=== PATIENT | male | born 1980 | race Caucasian/White ===

== ENCOUNTER → 2021-09-02 | Outpatient (CLI) | payer BC ==
--- NOTE | 2021-09-02 10:21 | US ---
EXAMINATION TYPE: US abdomen limited DATE OF EXAM: 09/02/2021 COMPARISON: NONE CLINICAL HISTORY: R94.5 ABN LIVER FUNCTION TEST. Patient states not seeing a doctor in over 20 years; recently had a physical and this test was ordered. Patient is extremely jaundiced. EXAM MEASUREMENTS: Liver Length: 20.5 cm Gallbladder Wall: 0.6 cm CBD: 0.6 cm Right Kidney: 12.0 x 5.5 x 5.0 cm Pancreas: Tail obscured by overlying bowel gas Liver: Hepatomegaly; ascites seen Gallbladder: Diffusely irregular wall thickening with mass-like projections and pericholecystic flui d. Evidence for sonographic Machuca's sign: No CBD: Appears wnl Right Kidney: No hydronephrosis or masses seen Visualized portion of pancreas shows no worrisome mass or ductal dilatation. Visualized liver is hete rogeneously hyperechoic with surrounding ascites. Evaluation for focal masses suboptimal due to the h eterogeneity. No obvious concerning solid or cystic mass seen on images saved. No intrahepatic or ext rahepatic biliary dilatation is seen. Gallbladder shows no mobile shadowing intraluminal gallstones. Gallbladder wall is thickened up to 6 mm. Sonographic Machuca sign is negative. No right-sided hydrone phrosis. IMPRESSION: Heterogeneous hyperechoic appearance of liver with surrounding ascites is suggestive of u nderlying hepatocellular disease or cirrhosis. No biliary dilatation noted
== END | disposition home or self-care (01) ==
LOC: RADUSWWP 09:34
PROVIDERS: ATTEND Family Medicine
DX: R94.5 Abnormal results of liver function studies (principal)
CPT/HCPCS: 76705

== ENCOUNTER 2021-10-06 16:24 | Inpatient (IN) | payer BC ==
[2021-10-06] MEDS ORDERED: SODIUM CHLORIDE 0.9% 500 ML 500 ML IV STA (16:47)
--- NOTE | 2021-10-06 17:01 | ED ---
General Adult HPI - General Chief complaint: Weakness Stated complaint: Weakness, abn labs Time Seen by Provider: 10/06/21 16:40 Source: patient, family, RN notes reviewed, old records reviewed Mode of arrival: ambulatory Limitations: no limitations - History of Present Illness Initial comments: 41-year-old male presents to the emergency room with generalized weakness, decreased appetite and abdominal distention. Patient is severely jaundiced. He states that he has been seening his doctor since June and they've been monitoring his liver enzymes. He had an ultrasound done in August of this year. He denies any pain or difficulty in breathing. He does state that his legs have been swollen. He denies any confusion. He denies any pain. Family at bedside states that she made him come to the hospital and he seems confused today. He was prescribed lactulose and has not been taking it. Family states that he has not been a heavy drinker in the past. She states that he would drink a Truly daily after work and he is currently not drinking. She states his doctor is not sure of the cause of his jaundice. -: month(s) Severity scale (1-10): 0 Associated Symptoms: loss of appetite, malaise, weakness - Related Data Home Medications Medication Instructions Recorded Confirmed Lactulose 15 gm PO BID 10/06/21 10/06/21 Multivitamins, Thera [Multivitamin 1 tab PO DAILY 10/06/21 10/06/21 (formulary)] Potassium Chloride ER [K-Dur 20] 20 meq PO DAILY 10/06/21 10/06/21 Sertraline [Zoloft] 50 mg PO HS 10/06/21 10/06/21 Spironolactone 50 mg PO BID 10/06/21 10/06/21 Allergies Allergy/AdvReac Type Severity Reaction Status Date / Time No Known Allergies Allergy Verified 10/06/21 17:25 Review of Systems ROS Statement: Those systems with pertinent positive or pertinent negative responses have been documented in the HPI. ROS Other: All systems not noted in ROS Statement are negative. Past Medical History Past Medical History: Liver Disease Past Surgical History: No Surgical Hx Reported Past Psychological History: Depression Smoking Status: Never smoker Past Alcohol Use History: None Reported Past Drug Use History: None Reported General Exam Limitations: no limitations General appearance: alert, in no apparent distress Eye exam: Present: scleral icterus. Absent: periorbital swelling, periorbital tenderness ENT exam: Present: mucous membranes moist Respiratory exam: Present: normal lung sounds bilaterally. Absent: respiratory distress, wheezes, rales, rhonchi, stridor, chest wall tenderness, accessory muscle use, decreased breath sounds Cardiovascular Exam: Present: regular rate GI/Abdominal exam: Present: distended. Absent: tenderness Extremities exam: Present: pedal edema (Bilateral 1+). Absent: tenderness, calf tenderness Back exam: Present: normal inspection. Absent: tenderness, CVA tenderness (R), CVA tenderness (L), rash noted Neurological exam: Present: alert, oriented X3, normal gait Expanded Patient oriented to: Present: person, place, time Speech: Present: fluid speech Cranial nerves: EOM's Intact: Normal, Gag Reflex: Normal, Tongue Deviation: Normal Motor strength exam: RUE: 4, LUE: 4, RLE: 4, LLE: 4 Eye Response: (4) open spontaneously Motor Response: (6) obeys commands Verbal Response: (5) oriented Marion Total: 15 Psychiatric exam: Present: flat affect Skin exam: Present: warm, dry, other (jaundiced). Absent: normal color, cyanosis, diaphoretic Course Vital Signs 10/06/21 10/06/21 10/06/21 16:26 16:33 19:11 Temperature 98.2 F Pulse Rate 79 89 Respiratory 16 16 Rate Blood Pressure 118/67 127/74 O2 Sat by Pulse 98 98 Oximetry EKG Findings - EKG Results: EKG: sinus rhythm (Ventricular at 85, SD interval 0.135, QRS 0.107, QTC 0.431) Medical Decision Making - Medical Decision Making 41-year-old male presents with generalized weakness, jaundice, confusion and abdominal distention. He has been seening his doctor since June and they've been monitoring his liver enzymes. He had an ultrasound done in August of this year. He was prescribed lactulose and has not been taking it. Patient has several electrolyte abnormalities including hyperkalemia, hyponatremia, and elevated liver enzymes. Lactic acid is elevated and patient was given IVF bolus, in addition to normal saline at 130cc/hr. Ammonia is 79 patient was given lactulose. CT brain shows no acute intracranial abnormality. A fluid density in the right side probably virchow-chelsey space. No evidence of intracranial hemorrhage. Vital signs are stable. Case discussed with Dr. Florence. patient will be admitted to the [facility] with nephrology on consult for FLORESITA; GI for hyperbilirubinemia and ascites; and neurology for altered mentation likely hepatic encephalopathy. Patient and family are agreeable to this plan of care. - Lab Data Result diagrams: 10/06/21 16:52 10/06/21 16:52 Lab Results 10/06/21 10/06/21 10/06/21 Range/Units 16:52 16:52 16:52 WBC 11.7 H (3.8-10.6) k/uL RBC 3.27 L (4.30-5.90) m/uL Hgb 13.0 (13.0-17.5) gm/dL Hct 38.1 L (39.0-53.0) % MCV 116.5 H (80.0-100.0) fL MCH 39.8 H (25.0-35.0) pg MCHC 34.2 (31.0-37.0) g/dL RDW 15.1 (11.5-15.5) % Plt Count 157 (150-450) k/uL MPV 8.8 Neutrophils % 80 % Lymphocytes % 9 % Monocytes % 8 % Eosinophils % 1 % Basophils % 0 % Neutrophils # 9.3 H (1.3-7.7) k/uL Lymphocytes # 1.1 (1.0-4.8) k/uL Monocytes # 0.9 (0-1.0) k/uL Eosinophils # 0.1 (0-0.7) k/uL Basophils # 0.0 (0-0.2) k/uL Manual Slide Review Performed Poikilocytosis (manual Present Macrocytosis Marked A PT 39.7 H (9.0-12.0) sec INR 4.0 H (<1.2) APTT 50.2 H (22.0-30.0) sec Sodium 127 L (137-145) mmol/L Potassium 5.4 H (3.5-5.1) mmol/L Chloride 97 L (98-107) mmol/L Carbon Dioxide 13 L (22-30) mmol/L Anion Gap 17 mmol/L BUN 71 H (9-20) mg/dL Creatinine 2.73 H (0.66-1.25) mg/dL Est GFR (CKD-EPI)AfAm 32 (>60 ml/min/1.73 sqM) Est GFR (CKD-EPI)NonAf 27 (>60 ml/min/1.73 sqM) Glucose 136 H (74-99) mg/dL Lactic Ac Sepsis Rflx Plasma Lactic Acid Clayton (0.7-2.0) mmol/L Calcium 8.6 (8.4-10.2) mg/dL Phosphorus 7.1 H (2.5-4.5) mg/dL Magnesium 2.4 H (1.6-2.3) mg/dL Total Bilirubin 26.2 H* (0.2-1.3) mg/dL AST 108 H (17-59) U/L ALT 95 H (4-49) U/L Alkaline Phosphatase 135 H (38-126) U/L Ammonia (<30) umol/L Troponin I (0.000-0.034) ng/mL Total Protein 8.2 (6.3-8.2) g/dL Albumin 3.0 L (3.5-5.0) g/dL Amylase 109 (30-110) U/L Lipase 557 H (23-300) U/L 10/06/21 10/06/21 10/06/21 Range/Units 16:52 16:52 17:45 WBC (3.8-10.6) k/uL RBC (4.30-5.90) m/uL Hgb (13.0-17.5) gm/dL Hct (39.0-53.0) % MCV (80.0-100.0) fL MCH (25.0-35.0) pg MCHC (31.0-37.0) g/dL RDW (11.5-15.5) % Plt Count (150-450) k/uL MPV Neutrophils % % Lymphocytes % % Monocytes % % Eosinophils % % Basophils % % Neutrophils # (1.3-7.7) k/uL Lymphocytes # (1.0-4.8) k/uL Monocytes # (0-1.0) k/uL Eosinophils # (0-0.7) k/uL Basophils # (0-0.2) k/uL Manual Slide Review Poikilocytosis (manual Macrocytosis PT (9.0-12.0) sec INR (<1.2) APTT (22.0-30.0) sec Sodium (137-145) mmol/L Potassium (3.5-5.1) mmol/L Chloride (98-107) mmol/L Carbon Dioxide (22-30) mmol/L Anion Gap mmol/L BUN (9-20) mg/dL Creatinine (0.66-1.25) mg/dL Est GFR (CKD-EPI)AfAm (>60 ml/min/1.73 sqM) Est GFR (CKD-EPI)NonAf (>60 ml/min/1.73 sqM) Glucose (74-99) mg/dL Lactic Ac Sepsis Rflx Y Plasma Lactic Acid Clyaton 3.9 H* (0.7-2.0) mmol/L Calcium (8.4-10.2) mg/dL Phosphorus (2.5-4.5) mg/dL Magnesium (1.6-2.3) mg/dL Total Bilirubin (0.2-1.3) mg/dL AST (17-59) U/L ALT (4-49) U/L Alkaline Phosphatase (38-126) U/L Ammonia 79 H (<30) umol/L Troponin I <0.012 (0.000-0.034) ng/mL Total Protein (6.3-8.2) g/dL Albumin (3.5-5.0) g/dL Amylase (30-110) U/L Lipase (23-300) U/L Disposition Clinical Impression: Hyponatremia, FLORESITA (acute kidney injury), Ascites, Hyperkalemia, Hyperammonemia, Altered mental status, Lactic acidosis Clinical Impression: (Ruled Out): Encephalopathy due to ammonia Disposition: ADMITTED IP TO THIS HOSP Decision Date: 10/06/21 Decision Time: 18:35
[2021-10-06 17:30] LABS: Basophils % (A) 0 %; Eosinophils # (A) 0.1 k/uL (0-0.7); Eosinophils % (A) 1 %; HCT 38.1 % (39.0-53.0); Lymphocytes # (A) 1.1 k/uL (1.0-4.8); Lymphocytes % (A) 9 %; MCH 39.8 pg (25.0-35.0); MCHC 34.2 g/dL (31.0-37.0); MCV 116.5 fL (80.0-100.0); Macrocytosis Marked; Mean Platelet Volume 8.8; Monocytes # (A) 0.9 k/uL (0-1.0); Monocytes % (A) 8 %; Neutrophils # (A) 9.3 k/uL (1.3-7.7); Neutrophils % (A) 80 %; Platelet Count 157 k/uL (150-450); RBC 3.27 m/uL (4.30-5.90); RDW 15.1 % (11.5-15.5); WBC 11.7 k/uL (3.8-10.6)
[2021-10-06 17:41] LABS: Partial Thromboplastin Time 50.2 sec (22.0-30.0); Prothrombin Time 39.7 sec (9.0-12.0)
[2021-10-06 17:45] LABS: Lactic Acid, Venous 3.9 mmol/L (0.7-2.0)
[2021-10-06] MEDS ORDERED: SODIUM CHLORIDE 0.9% 500 ML 500 ML IV ONE (17:47)
--- NOTE | 2021-10-06 18:04 | CT ---
EXAMINATION TYPE: CT brain wo con DATE OF EXAM: 10/06/2021 COMPARISON: None HISTORY: altered mental - jaundiced CT DLP: 1052.4 mGycm Automated exposure control for dose reduction was used. Ventricles have fairly normal size. There is no mass effect or midline shift. There is no sign of int racranial hemorrhage. There is irregular shaped area of fluid density in the insula right temporal lo be that could be a large Virchow-Mehdi space. This measures 2 x 1.3 cm. The calvarium is intact. Ther e is normal aeration of the mastoid sinuses. IMPRESSION: No acute intracranial abnormality. Fluid density in the right side is probably virchowRobin space.
[2021-10-06] MEDS ORDERED: LACTULOSE 20 GM/30 ML CUP PO ONE (18:06)
[2021-10-06 18:07] LABS: Calcium 8.6 mg/dL (8.4-10.2); Magnesium 2.4 mg/dL (1.6-2.3); Phosphorus 7.1 mg/dL (2.5-4.5); Potassium 5.4 mmol/L (3.5-5.1)
[2021-10-06 18:12] LABS: Poikilocytosis (M) Present
[2021-10-06 18:16] LABS: Total Bilirubin 26.2 mg/dL (0.2-1.3); Total Protein 8.2 g/dL (6.3-8.2)
--- NOTE | 2021-10-06 18:16 | XR ---
EXAMINATION TYPE: XR chest 2V DATE OF EXAM: 10/06/2021 COMPARISON: NONE HISTORY: Weakness TECHNIQUE: 3 views FINDINGS: Heart is normal. There is some elevation of the right diaphragm. There is some linear densi ty at the lung bases bilaterally. There are no hilar masses. There are chest leads. IMPRESSION: Bilateral basilar atelectasis with some elevation of the right diaphragm. Normal heart.
[2021-10-06] MEDS: SODIUM CHLORIDE 0.9% 1,000 ML IV SCH (18:20)
[2021-10-06] MEDS ORDERED: NALOXONE 0.4 MG/ML 1 ML VIAL IV PRN (18:35)
[2021-10-06] MEDS: ONDANSETRON 4 MG/2 ML VIAL IVP PRN (18:46)
--- NOTE | 2021-10-06 18:48 | US ---
EXAMINATION TYPE: US abdomen limited DATE OF EXAM: 10/06/2021 COMPARISON: US 09/02/21 CLINICAL HISTORY: ascites. EC patient with jaundice, distended abdomen, lethargy, abnormal labs. Ascites is imaged in all four abdominal quadrants with largest ascites pocket seen RLQ = 12.3cm A/P/ Incidental follow up on gallbladder: hyperechoic sludge is seen in neck and mid gallbladder in semie rect position. Gallbladder wall is wnl.Common Hepatic Duct measures 0.3cm and is wnl. Main Portal Vei n is enlarged = 1.7cm. IMPRESSION: There is large amount of abdominal ascites demonstrated. There is echogenic bile in the g allbladder. There is a large portal vein consistent with some portal venous hypertension. No thrombos is seen.
[2021-10-06] MEDS ORDERED: LACTULOSE 200 GM/300 ML (FROM 1/2 GAL JUG) PO SCH (21:00)
[2021-10-06] MEDS ORDERED: SPIRONOLACTONE 25 MG TAB PO SCH (21:00)
[2021-10-06] MEDS: SERTRALINE 50 MG TAB PO SCH (23:13)
[2021-10-06] MEDS ORDERED: LACTULOSE 20 GM/30 ML CUP PO SCH (23:14)
[2021-10-06] MEDS: LACTULOSE 20 GM/30 ML CUP PO SCH (23:38)
--- NOTE | 2021-10-07 02:09 | P.EN ---
A- team: Indication: Hypothermia Arrived on Scene to find: Severely jaundiced patient, complaining of not feeling well Vital signs reviewed: Temperature 94.7 degrees axillary, BP 112/69, pulse 86, SpO2 99% on room air Patient seen and examined at bedside. Chart reviewed and case discussed with RN in detail. General: Severely jaundiced ill-appearing male, [appears at stated age] Derm: [warm], [dry] Head: [atraumatic], [normocephalic], [symmetric] Eyes: [EOMI], [no lid lag], scleral icterus noted Mouth: [no lip lesion], [mucus membranes moist] Cardiovascular: [S1S2 reg], [no murmur], [positive posterior tibial pulse bilateral], Lungs: [CTA bilateral], [no rhonchi, no rales] , [no accessory muscle use] Abdominal: Distended with fluid thrill noted, [no guarding] Ext: [no gross muscle atrophy], 1+ bilateral lower extremity pitting edema, [no contractures] Neuro: [ CN II-XI grossly intact], [no focal neuro deficits] Psych: Lethargic, answering questions appropriately however and oriented to person, place, time Assessment: Fulminant liver failure, unknown etiology Hepatic encephalopathy Plan: Discussed the case in detail with the patient's and [id number] at the bedside. Explained to the family regarding the patient's poor prognosis with MELD score showing 73% 3 month mortality. Ceftriaxone for SBP prophylaxis ordered GI consult in system Warming blankets ordered Family reports no clear diagnosis regarding the etiology of liver failure. reports the patient consumed 1 drink/day for the past several years Notified: Primary team notified by RN A Total of 45 minutes of critical care time was spent on the complex care of this patient.
[2021-10-07] MEDS: SODIUM CHLORIDE 0.9% 1,000 ML IV SCH (03:00)
[2021-10-07 07:36] LABS: ALT 97 U/L (4-49); AST 102 U/L (17-59); African American GFR (CKD) 36 (>60 ml/min/1.73 sqM); Albumin 2.6 g/dL (3.5-5.0); Albumin/Globulin Ratio 0.5; Alkaline Phosphatase 122 U/L (38-126); Anion Gap 8 mmol/L; Blood Urea Nitrogen 75 mg/dL (9-20); Calcium 8.2 mg/dL (8.4-10.2); Carbon Dioxide 16 mmol/L (22-30); Chloride 105 mmol/L (98-107); Globulin 4.9 g/dL; Glucose 121 mg/dL (74-99); Magnesium 2.4 mg/dL (1.6-2.3); Non-African American GFR(CKD) 31 (>60 ml/min/1.73 sqM); Potassium 5.1 mmol/L (3.5-5.1); Sodium 129 mmol/L (137-145); Total Protein 7.5 g/dL (6.3-8.2)
[2021-10-07 07:41] LABS: Total Bilirubin 21.8 mg/dL (0.2-1.3)
--- NOTE | 2021-10-07 08:01 | US ---
EXAMINATION TYPE: US kidneys/renal and bladder DATE OF EXAM: 10/07/2021 COMPARISON: NONE CLINICAL HISTORY: elva. EXAM MEASUREMENTS: Right Kidney: 13.3 x 5.4 x 6.7 cm Left Kidney: 14.9 x 5.3 x 5.3 cm Right Kidney: No hydronephrosis or masses seen Left Kidney: No hydronephrosis or masses seen Bladder: Sonolucent. Posterior wall is normal. Incidental note is made of ascites throughout abdomen and pelvis. IMPRESSION: 1. Ascites. 2. Bilateral kidneys as visualized appear unremarkable.
[2021-10-07] MEDS: ONDANSETRON 4 MG/2 ML VIAL IVP PRN (08:28)
[2021-10-07] MEDS: LACTULOSE 20 GM/30 ML CUP PO SCH ×2 (08:28→22:47)
[2021-10-07] MEDS: MULTIVITAMINS, THERA 1 EACH TAB PO SCH (08:29)
[2021-10-07] MEDS ORDERED: LACTULOSE 20 GM/30 ML CUP PO SCH (09:00)
--- NOTE | 2021-10-07 09:21 | P.NPCON ---
History of Present Illness - Reason for Consult acute renal failure - History of Present Illness Reason for consultation: Acute kidney injury History of present illness: Patient is a 41-year-old male seen in renal consultation for acute kidney injury. Patient's baseline creatinine is near 1 and was elevated at 2.73 on admission. It is 2.46 today. Patient presented to the hospital with altered mental status. According to the he's been more confused over the last week or so and subsequently brought him to the hospital. Patient was noted to have elevated liver enzymes and was being worked up outpatient. He had an ultrasound done and was also started on spironolactone 50 mg twice daily about 2 weeks ago. However his abdomen has been getting progressively more distended. Ultrasound of the abdomen showed large amount of ascites. He's currently receiving IV fluids. Blood pressure is stable. Potassium was 5.4 on admission and is 5.1 today. Sodium level is 129. No use of nonsteroidals. According to the he drinks about 1 alcoholic beverage a day or so. No history of diabetes. Vital signs are stable. General: Resting in bed. Jaundice noted. HEENT: Head exam is unremarkable. LUNGS: Breath sounds decreased. HEART: Rate and Rhythm are regular. ABDOMEN: Soft, distention noted. EXTREMITITES: 1+ edema. Past Medical History Past Medical History: Liver Disease History of Any Multi-Drug Resistant Organisms: None Reported Past Surgical History: No Surgical Hx Reported Past Psychological History: Depression Smoking Status: Never smoker Past Alcohol Use History: None Reported Past Drug Use History: None Reported Medications and Allergies Home Medications Medication Instructions Recorded Confirmed Type Lactulose 15 gm PO BID 10/06/21 10/06/21 History Multivitamins, Thera [Multivitamin 1 tab PO DAILY 10/06/21 10/06/21 History (formulary)] Potassium Chloride ER [K-Dur 20] 20 meq PO DAILY 10/06/21 10/06/21 History Sertraline [Zoloft] 50 mg PO HS 10/06/21 10/06/21 History Spironolactone 50 mg PO BID 10/06/21 10/06/21 History Allergies Allergy/AdvReac Type Severity Reaction Status Date / Time No Known Allergies Allergy Verified 10/06/21 17:25 Physical Exam Vitals: Vital Signs Temp Pulse Pulse Resp BP BP Pulse Ox 10/07/21 08:00 97.4 F L 94 18 109/63 98 10/07/21 02:07 96.1 F L 86 15 120/71 97 10/06/21 21:33 94.7 F L 86 16 112/69 99 10/06/21 20:00 86 10/06/21 19:11 89 16 127/74 98 10/06/21 16:33 118/67 10/06/21 16:26 98.2 F 79 16 98 Intake and Output 10/06/21 10/07/21 10/07/21 22:59 06:59 14:59 Intake Total 830 Balance 830 Intake: Intake, IV Titration 830 Amount Sodium Chloride 0.9% 1, 780 000 ml @ 130 mls/hr IV . [id number] [facility] Rx#:[id number] cefTRIAXone 2 gm In 50 Sodium Chloride 0.9% 50 ml @ 100 mls/hr IVPB ONCE STA Rx#:[id number] Other: # Bowel Movements 3 Weight 81.647 kg Results - Lab Results Most recent lab results Calcium 8.2 mg/dL (8.4-10.2) L 10/07/21 05:41 Phosphorus 7.1 mg/dL (2.5-4.5) H 10/06/21 16:52 Magnesium 2.4 mg/dL (1.6-2.3) H 10/07/21 05:41 10/06/21 16:52 10/07/21 05:41 Assessment and Plan Plan: Assessment: 1. Acute kidney injury secondary to ATN. Concern for hepatorenal syndrome. Creatinine 2.73 on admission and is 2.46 today. Baseline creatinine near 1. No hydronephrosis noted on kidney ultrasound. 2. Acute liver failure. Likely alcohol induced. 3. Hyperkalemia secondary to acute kidney injury, metabolic acidosis, spironolactone and potassium supplementation. Better. 4. Ascites. 5. Hypovolemic hyponatremia initially improved with IV hydration. Now hypervolemic with ascites. 6. Metabolic acidosis secondary to acute kidney injury and lactic acidosis. Plan: Hep-Lock IV fluids. 1200 mL fluid restriction. Add Lasix 40 mg IV daily. Hold spironolactone due to hyperkalemia today. Add oral sodium bicarb. Will need paracentesis. I will give him IV albumin pre-and post procedure. Continue to monitor renal function and urine output. GI consulted. Straight cath to rule out urinary retention. Discussed with the nurse. Check UA. Thank you for the consultation. I will continue to follow the patient with you during his hospital stay.
[2021-10-07 09:55] LABS: Amorphous Sediment,Urine Occasional /hpf; Appearance,Urine Cloudy (Clear); Bilirubin,Urine 3+ (Negative); Blood,Urine Negative (Negative); Color,Urine Dark Brown; Glucose,Urine (UA) Negative (Negative); Ketones,Urine Negative (Negative); Leukocyte Esterase,Urine Negative (Negative); Mucus,Urine Rare /hpf; Nitrite,Urine Negative (Negative); Protein,Urine Negative (Negative); RBC,Urine 1 /hpf (0-5); Specific Gravity,Urine 1.015 (1.001-1.035); Squamous Epithelial Cell,Urine 1 /hpf (0-4); WBC,Urine 2 /hpf (0-5)
--- NOTE | 2021-10-07 10:49 | P.CNNES ---
History of Present Illness Consult date: 10/07/21 Requesting physician: Nolan Coleman Reason for Consult: Altered mental status, hyperammonemia History of Present Illness: This is a 41-year-old gentleman who presented emergency department on 10/06/2021 for generalized weakness, decreased appetite and abdominal distention. Neurology is consulted for altered mental status, hyperammonemia. Some of the history is obtained from patient's (who is at bedside). Patient presented severely jaundice and the per the patient's he drinks 1-2 cans of beer a day and they're usually 12 ounces and he said he stopped couple months ago. He denies severe alcohol use. Per the patient he's been having significant weight loss for some time but I could not get up and walk frame of time and how much. Denies any diagnosis of cancer. He feels his entire body is weak, fatigue. There is no focal weakness. Patient is not on acetaminophen. Patient has history of depression, GERD and patient is on diuretic, potassium and Zoloft. Patient Eze off from his mother's side had a history of colon cancer but he's not sure at what age. Patient denies of tobacco use or any illicit drug use. Some of the workup in the hospital consisted of: CT of the head is reported as no acute intracranial abnormality. The fluid density in the right sided probable Virchow Mehdi space. I personally reviewed the CT of the head there is no acute subacute ischemia, there is no intracranial hemorrhage, there is no mass effect. I did see the hypodensity over the right side as mostly over the right basal ganglia/medial temporal region. I discussed this with Dr. Danielle (reading radiologist) today and he felt it was benign and he did not feel it was Virchow Mehdi space and he felt it was more cystic. AST 108, ALT 95. Total bilirubin is 26.2, ammonia level LXXIX. Lipase is 557. Also on phosphatase is 135. Creatinine is 2.73, BUN 71, sodium is 127, potassium is 5.4, calcium is 8.6, phosphorus is 7.1, magnesium 2.4 INR is 4.0, PTT is 50.2, PTT is 39.7. Abdominal ultrasound is reported as large amount of abdominal ascites. There is echogenic bile in the gallbladder. There is a large portal vein consistent with some portal venous hypertension. No thrombosis seen. Bilateral kidneys as visualized appear unremarkable. Review of Systems Review of system: The 12 point system was reviewed and apparent positive and negative per HPI. Past Medical History Past Medical History: Liver Disease History of Any Multi-Drug Resistant Organisms: None Reported Past Surgical History: No Surgical Hx Reported Past Psychological History: Depression Smoking Status: Never smoker Past Alcohol Use History: None Reported Past Drug Use History: None Reported - Past Family History Mother Additional Family Medical History / Comment(s): gallbladder removed, bile duct closed, jaundice Medications and Allergies Home Medications Medication Instructions Recorded Confirmed Type Lactulose 15 gm PO BID 10/06/21 10/06/21 History Multivitamins, Thera [Multivitamin 1 tab PO DAILY 10/06/21 10/06/21 History (formulary)] Potassium Chloride ER [K-Dur 20] 20 meq PO DAILY 10/06/21 10/06/21 History Sertraline [Zoloft] 50 mg PO HS 10/06/21 10/06/21 History Spironolactone 50 mg PO BID 10/06/21 10/06/21 History Allergies Allergy/AdvReac Type Severity Reaction Status Date / Time No Known Allergies Allergy Verified 10/06/21 17:25 Physical Examination - Vital Signs Vital Signs: Vital Signs Temp Pulse Pulse Resp BP BP Pulse Ox 10/07/21 08:00 97.4 F L 94 18 109/63 98 10/07/21 02:07 96.1 F L 86 15 120/71 97 10/06/21 21:33 94.7 F L 86 16 112/69 99 10/06/21 20:00 86 10/06/21 19:11 89 16 127/74 98 10/06/21 16:33 118/67 10/06/21 16:26 98.2 F 79 16 98 Intake and Output 10/06/21 10/07/21 10/07/21 22:59 06:59 14:59 Intake Total 830 Balance 830 Intake: Intake, IV Titration 830 Amount Sodium Chloride 0.9% 1, 780 000 ml @ 130 mls/hr IV . [id number] [facility] Rx#:[id number] cefTRIAXone 2 gm In 50 Sodium Chloride 0.9% 50 ml @ 100 mls/hr IVPB ONCE STA Rx#:[id number] Other: # Bowel Movements 3 Weight 81.647 kg GENERAL: The patient is lying in bed and appears severely jaundice and fatigue throughout. . CHEST: The heart rate is regular rate rhythm. No murmurs to auscultation. LUNG: Clear to auscultation bilaterally no wheezing noted throughout. Not labored breathing. ABDOMEN/GI: Bowel sounds present in all 4 quadrants. Has ascites. INTEGUMENTARY: Severely jaundice throughout body. NEUROLOGICAL: Higher mental function: The patient is drowsy but is awakeable to voice, oriented to self, place and time. Patient is following commands. No aphasia and no neglect. Cranial nerves: The pupils are round, equal and reactive to light. Patient has scleral icterus. Visual [place]lejo are full to confrontation throughout. Extraocular movement is intact no nystagmus is noted. Facial sensation is normal to touch throughout. The facial strength is normal throughout. Hearing is normal bilaterally to hand rub. Tongue is midline and moved [id number] without any difficulty. No dysarthria is noted. Shoulder shrug is normal bilaterally. Motor: The strength is lfting all extremities above gravity. Could not assess i ndividual muscles because of cooperation. Normal tone and bulk. Cerebellum: Normal finger to nose bilaterally. Has Asterixis on extension of both hands out. Sensation: Sensation is normal to touch throughout. Reflexes (right/left): 2+ throughout. Plantars are mute bilaterally. Results - Laboratory Findings CBC and BMP: 10/06/21 16:52 10/07/21 05:41 Abnormal Lab Findings: Abnormal Labs 10/06/21 10/06/21 10/06/21 16:52 16:52 16:52 WBC 11.7 H RBC 3.27 L Hct 38.1 L MCV 116.5 H MCH 39.8 H Neutrophils # 9.3 H Macrocytosis Marked A PT 39.7 H INR 4.0 H APTT 50.2 H Sodium 127 L Potassium 5.4 H Chloride 97 L Carbon Dioxide 13 L BUN 71 H Creatinine 2.73 H Glucose 136 H Plasma Lactic Acid Clayton Calcium Phosphorus 7.1 H Magnesium 2.4 H Total Bilirubin 26.2 H* AST 108 H ALT 95 H Alkaline Phosphatase 135 H Ammonia Albumin 3.0 L Lipase 557 H Urine Bilirubin Amorphous Sediment Urine Mucus 10/06/21 10/06/21 10/07/21 16:52 20:32 05:41 WBC RBC Hct MCV MCH Neutrophils # Macrocytosis PT INR APTT Sodium 129 L Potassium Chloride Carbon Dioxide 16 L BUN 75 H Creatinine 2.46 H Glucose 121 H Plasma Lactic Acid Clayton 3.9 H* 3.8 H* Calcium 8.2 L Phosphorus Magnesium 2.4 H Total Bilirubin 21.8 H* AST 102 H ALT 97 H Alkaline Phosphatase Ammonia 79 H Albumin 2.6 L Lipase Urine Bilirubin Amorphous Sediment Urine Mucus 10/07/21 09:22 WBC RBC Hct MCV MCH Neutrophils # Macrocytosis PT INR APTT Sodium Potassium Chloride Carbon Dioxide BUN Creatinine Glucose Plasma Lactic Acid Clayton Calcium Phosphorus Magnesium Total Bilirubin AST ALT Alkaline Phosphatase Ammonia Albumin Lipase Urine Bilirubin 3+ H Amorphous Sediment Occasional H Urine Mucus Rare H Assessment and Plan Assessment: Hepatic encephalopathy Hyperammonemia due to liver failure Electrolyte abnormality due to acute liver failure Acute liver failure rule out cancer vs ?possible alcohol induced. Ascites due to acute liver failure Acute kidney injury History of alcohol use and drinks one to 2 cans of beer daily (12 oz) and stopped couple months back. Plan: -Patient is on lactulose and we'll defer the management to the primary as well as the GI team. -CT of the head is reported as no acute intracranial abnormality. The fluid density in the right sided probable Virchow Mehdi space. I personally reviewed the CT of the head there is no acute subacute ischemia, there is no intracranial hemorrhage, there is no mass effect. I did see the hypodensity over the right side as mostly over the right basal ganglia/medial temporal region. I discussed this with Dr. Danielle (reading radiologist) today and he felt it was benign and he did not feel it was Virchow Mehdi space and he felt it was more cystic. Therefore MRI of the brain with and without can be performed when the patient is more stable and kidney normalize or even outpatient. GI team is on board I started the patient on thiamine 100 mg IV daily. I ordered vitamin B12 and folate level. We'll defer the electrolyte imbalance management to the primary and nephrology team. We'll defer the rest of medical management to the primary team. Condition: Is very guarded. The plan is discussed with the patient's was at bedside as well as the patient's nurse and GI team (N.P.). Thank you for the consultation Sergo Phelps M.D. Neuro-hospitalist Time with Patient: Greater than 30
[2021-10-07 11:09] LABS: INR 4.4 (<1.2); Prothrombin Time 43.5 sec (9.0-12.0)
[2021-10-07] MEDS: THIAMINE 100 MG/ML 2 ML VIAL IVP SCH (11:20)
[2021-10-07] MEDS: SODIUM BICARBONATE TAB 650 MG TAB PO SCH ×2 (11:20→22:47)
[2021-10-07] MEDS: FUROSEMIDE 10 MG/ML 4 ML VIAL IV SCH (11:21)
--- NOTE | 2021-10-07 12:31 | P.GSCN ---
History of Present Illness Consult date: 10/07/21 History of present illness: This is a 41-year-old male presented to the hospital with complaints of abdominal pain he was recently diagnosed with liver failure and cirrhosis. Patient does have a history of heavy EtOH use however he states that he has not recently been drinking. During his workup he was found have some sludge within his gallbladder. General surgery was consulted. Upon admission patient's meld score was 40. Past Medical History Past Medical History: Liver Disease History of Any Multi-Drug Resistant Organisms: None Reported Past Surgical History: No Surgical Hx Reported Past Psychological History: Depression Smoking Status: Never smoker Past Alcohol Use History: None Reported Past Drug Use History: None Reported Medications and Allergies Home Medications Medication Instructions Recorded Confirmed Type Lactulose 15 gm PO BID 10/06/21 10/06/21 History Multivitamins, Thera [Multivitamin 1 tab PO DAILY 10/06/21 10/06/21 History (formulary)] Potassium Chloride ER [K-Dur 20] 20 meq PO DAILY 10/06/21 10/06/21 History Sertraline [Zoloft] 50 mg PO HS 10/06/21 10/06/21 History Spironolactone 50 mg PO BID 10/06/21 10/06/21 History Allergies Allergy/AdvReac Type Severity Reaction Status Date / Time No Known Allergies Allergy Verified 10/06/21 17:25 Surgical - Exam Osteopathic Statement: *. No significant issues noted on an osteopathic structural exam other than those noted in the History and Physical/Consult. Vital Signs Temp Pulse Resp Pulse Ox 98.2 F 79 16 98 10/06/21 16:26 10/06/21 16:26 10/06/21 16:26 10/06/21 16:26 - General well developed, no distress, chronically ill - Eyes PERRL - Respiratory normal expansion, normal respiratory effort - Cardiovascular Rhythm: regular - Abdomen Soft distended nontender - Neurologic normal coordination, normal sensation Results - Labs 10/06/21 16:52 10/07/21 05:41 Abnormal Lab Results - Last 24 Hours (Table) 10/06/21 10/06/21 10/06/21 Range/Units 16:52 16:52 16:52 WBC 11.7 H (3.8-10.6) k/uL RBC 3.27 L (4.30-5.90) m/uL Hct 38.1 L (39.0-53.0) % MCV 116.5 H (80.0-100.0) fL MCH 39.8 H (25.0-35.0) pg Neutrophils # 9.3 H (1.3-7.7) k/uL Macrocytosis Marked A PT 39.7 H (9.0-12.0) sec INR 4.0 H (<1.2) APTT 50.2 H (22.0-30.0) sec Sodium 127 L (137-145) mmol/L Potassium 5.4 H (3.5-5.1) mmol/L Chloride 97 L (98-107) mmol/L Carbon Dioxide 13 L (22-30) mmol/L BUN 71 H (9-20) mg/dL Creatinine 2.73 H (0.66-1.25) mg/dL Glucose 136 H (74-99) mg/dL Plasma Lactic Acid Clayton (0.7-2.0) mmol/L Calcium (8.4-10.2) mg/dL Phosphorus 7.1 H (2.5-4.5) mg/dL Magnesium 2.4 H (1.6-2.3) mg/dL Total Bilirubin 26.2 H* (0.2-1.3) mg/dL AST 108 H (17-59) U/L ALT 95 H (4-49) U/L Alkaline Phosphatase 135 H (38-126) U/L Ammonia (<30) umol/L Albumin 3.0 L (3.5-5.0) g/dL Lipase 557 H (23-300) U/L Urine Bilirubin (Negative) Amorphous Sediment (None) /hpf Urine Mucus (None) /hpf 10/06/21 10/06/21 10/07/21 Range/Units 16:52 20:32 05:41 WBC (3.8-10.6) k/uL RBC (4.30-5.90) m/uL Hct (39.0-53.0) % MCV (80.0-100.0) fL MCH (25.0-35.0) pg Neutrophils # (1.3-7.7) k/uL Macrocytosis PT (9.0-12.0) sec INR (<1.2) APTT (22.0-30.0) sec Sodium 129 L (137-145) mmol/L Potassium (3.5-5.1) mmol/L Chloride (98-107) mmol/L Carbon Dioxide 16 L (22-30) mmol/L BUN 75 H (9-20) mg/dL Creatinine 2.46 H (0.66-1.25) mg/dL Glucose 121 H (74-99) mg/dL Plasma Lactic Acid Clayton 3.9 H* 3.8 H* (0.7-2.0) mmol/L Calcium 8.2 L (8.4-10.2) mg/dL Phosphorus (2.5-4.5) mg/dL Magnesium 2.4 H (1.6-2.3) mg/dL Total Bilirubin 21.8 H* (0.2-1.3) mg/dL AST 102 H (17-59) U/L ALT 97 H (4-49) U/L Alkaline Phosphatase (38-126) U/L Ammonia 79 H (<30) umol/L Albumin 2.6 L (3.5-5.0) g/dL Lipase (23-300) U/L Urine Bilirubin (Negative) Amorphous Sediment (None) /hpf Urine Mucus (None) /hpf 10/07/21 10/07/21 Range/Units 09:22 10:13 WBC (3.8-10.6) k/uL RBC (4.30-5.90) m/uL Hct (39.0-53.0) % MCV (80.0-100.0) fL MCH (25.0-35.0) pg Neutrophils # (1.3-7.7) k/uL Macrocytosis PT 43.5 H (9.0-12.0) sec INR 4.4 H (<1.2) APTT (22.0-30.0) sec Sodium (137-145) mmol/L Potassium (3.5-5.1) mmol/L Chloride (98-107) mmol/L Carbon Dioxide (22-30) mmol/L BUN (9-20) mg/dL Creatinine (0.66-1.25) mg/dL Glucose (74-99) mg/dL Plasma Lactic Acid Clayton (0.7-2.0) mmol/L Calcium (8.4-10.2) mg/dL Phosphorus (2.5-4.5) mg/dL Magnesium (1.6-2.3) mg/dL Total Bilirubin (0.2-1.3) mg/dL AST (17-59) U/L ALT (4-49) U/L Alkaline Phosphatase (38-126) U/L Ammonia (<30) umol/L Albumin (3.5-5.0) g/dL Lipase (23-300) U/L Urine Bilirubin 3+ H (Negative) Amorphous Sediment Occasional H (None) /hpf Urine Mucus Rare H (None) /hpf Diabetes panel 10/06/21 10/07/21 Range/Units 16:52 05:41 Sodium 127 L 129 L (137-145) mmol/L Potassium 5.4 H 5.1 (3.5-5.1) mmol/L Chloride 97 L 105 (98-107) mmol/L Carbon Dioxide 13 L 16 L (22-30) mmol/L BUN 71 H 75 H (9-20) mg/dL Creatinine 2.73 H 2.46 H (0.66-1.25) mg/dL Glucose 136 H 121 H (74-99) mg/dL Calcium 8.6 8.2 L (8.4-10.2) mg/dL AST 108 H 102 H (17-59) U/L ALT 95 H 97 H (4-49) U/L Alkaline Phosphatase 135 H 122 (38-126) U/L Total Protein 8.2 7.5 (6.3-8.2) g/dL Albumin 3.0 L 2.6 L (3.5-5.0) g/dL Calcium panel 10/06/21 10/07/21 Range/Units 16:52 05:41 Calcium 8.6 8.2 L (8.4-10.2) mg/dL Phosphorus 7.1 H (2.5-4.5) mg/dL Albumin 3.0 L 2.6 L (3.5-5.0) g/dL Pituitary panel 10/06/21 10/07/21 Range/Units 16:52 05:41 Sodium 127 L 129 L (137-145) mmol/L Potassium 5.4 H 5.1 (3.5-5.1) mmol/L Chloride 97 L 105 (98-107) mmol/L Carbon Dioxide 13 L 16 L (22-30) mmol/L BUN 71 H 75 H (9-20) mg/dL Creatinine 2.73 H 2.46 H (0.66-1.25) mg/dL Glucose 136 H 121 H (74-99) mg/dL Calcium 8.6 8.2 L (8.4-10.2) mg/dL Adrenal panel 10/06/21 10/07/21 Range/Units 16:52 05:41 Sodium 127 L 129 L (137-145) mmol/L Potassium 5.4 H 5.1 (3.5-5.1) mmol/L Chloride 97 L 105 (98-107) mmol/L Carbon Dioxide 13 L 16 L (22-30) mmol/L BUN 71 H 75 H (9-20) mg/dL Creatinine 2.73 H 2.46 H (0.66-1.25) mg/dL Glucose 136 H 121 H (74-99) mg/dL Calcium 8.6 8.2 L (8.4-10.2) mg/dL Total Bilirubin 26.2 H* 21.8 H* (0.2-1.3) mg/dL AST 108 H 102 H (17-59) U/L ALT 95 H 97 H (4-49) U/L Alkaline Phosphatase 135 H 122 (38-126) U/L Total Protein 8.2 7.5 (6.3-8.2) g/dL Albumin 3.0 L 2.6 L (3.5-5.0) g/dL Assessment and Plan Assessment: Cirrhosis and liver failure Plan: Patient is not a surgical candidate at this time. He does not have any signs of acute cholecystitis. Patient's meld score was 40 upon admission. He likely would not survive surgical intervention. I recommend patient follow up with GI and hepatology and be evaluated at the liver center for possible liver transplant. Should his situation arise where patient needed surgical intervention this would need to be done at a liver center due to the patient's liver failure.
[2021-10-07] MEDS ORDERED: PHYTONADIONE 10 MG in SODIUM CHLORIDE 0.9% 50 ML IVPB STA (12:42)
[2021-10-07 14:00] VITALS: BMI 28.1
[2021-10-07 16:48] LABS: Vitamin B12 >2000.0 pg/mL (200.0-944.0)
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
[2021-10-07] MEDS: ALBUMIN HUMAN 25% 50 ML in EMPTY BAG 1 BAG IVPB SCH ×3 (17:01→22:47)
--- NOTE | 2021-10-07 17:32 | P.HPIM ---
History of Present Illness H&P Date: 10/07/21 Chief Complaint: Mental status changes, jaundice, abdominal distention This is a 41-year-old gentleman with past medical history of recently diagnosed liver failure and cirrhosis in a patient with history of alcohol use-states he drank 1-2 cans of beer daily ( 12 oz.) with last drink approximately 2 months ago,(-denied acetaminophen use, reports no alcohol abuse) depression, gastroesophageal reflux disease, presented to ER with increased abdominal distention,jaundiced with increased confusion. reports ,he was not taking his lactulose as prescribed. also reports liver enzymes monitored regularly with PCP. Denies abdominal pain. Abdominal ultrasound performed in August 2021 reporting heterogenesis hyperechoic appearance of liver with surrounding ascites suggestive of underlying hepatocellular disease or cirrhosis without biliary dilatation. Pancreas tail obscured by overlying bowel gas. Gallbladder diffusely irregular wall thickening with metastatic protections and pericholecystectic fluid. Renal ultrasound pending. Abdominal ultrasound r eporting large amount of abdominal ascites, echogenic bile in the gallbladder, large portal vein consistent with some portal venous hypertension, no thrombosis seen.Brain CT reported no acute intracranial abnormality, fluid density in the right side probably virtual chelsey space-further evaluated between reading radiologist and neurologist-reporting it to be benign and they did not feel that it was [place]sey space and he felt it was more cystic. Brain MRI recommended inpatient or outpatient . Chest x-ray reporting bilateral basilar atelectasis with some elevation of the right diaphragm.Maintaining O2 sats in the 90s on room air. EKG reporting sinus rhythm, troponin negative 1, denies chest pain, palpitations.WBC 11.7, hemoglobin 13, hematocrit 38, platelets 157, INR 4.0. Sodium 129, potassium 5.1, bicarb 16, BUN 75, creatinine decreased to 2.46. On admission , MCV 116.5 ,Total bili 26.2, AST 108, ALT 95, alk phos 135, ammonia 79; currently total bili 21.8, AST 102, ALT 97, alk phos 122, ammonia 22. Albumin 2.6. Lipase is a 557. Recent nonreactive hepatitis panel 09/04/21.Earlier this morning, unable to obtain temperature greater than 94 and bear hugger placed, currently 97.4 axillary. Maintained on IV hydration, with lactic acid decreased from 3.8-1.3, vitamin K, thiamine, lactulose, albumin, sodium bicarb empiric ceftriaxone for SBP. Review of Systems ROS Statement: Those systems with pertinent positive or pertinent negative responses have been documented in the HPI. ROS Other: All systems not noted in ROS Statement are negative. Past Medical History Past Medical History: Liver Disease History of Any Multi-Drug Resistant Organisms: None Reported Past Surgical History: No Surgical Hx Reported Past Psychological History: Depression Smoking Status: Never smoker Past Alcohol Use History: None Reported Past Drug Use History: None Reported - Past Family History Mother Additional Family Medical History / Comment(s): gallbladder removed, bile duct closed, jaundice Medications and Allergies Home Medications Medication Instructions Recorded Confirmed Type Lactulose 15 gm PO BID 10/06/21 10/06/21 History Multivitamins, Thera [Multivitamin 1 tab PO DAILY 10/06/21 10/06/21 History (formulary)] Potassium Chloride ER [K-Dur 20] 20 meq PO DAILY 10/06/21 10/06/21 History Sertraline [Zoloft] 50 mg PO HS 10/06/21 10/06/21 History Spironolactone 50 mg PO BID 10/06/21 10/06/21 History Allergies Allergy/AdvReac Type Severity Reaction Status Date / Time No Known Allergies Allergy Verified 10/06/21 17:25 Physical Exam Vitals: Vital Signs Temp Pulse Pulse Resp BP BP Pulse Ox 10/07/21 08:00 97.4 F L 94 18 109/63 98 10/07/21 02:07 96.1 F L 86 15 120/71 97 10/06/21 21:33 94.7 F L 86 16 112/69 99 10/06/21 20:00 86 10/06/21 19:11 89 16 127/74 98 10/06/21 16:33 118/67 10/06/21 16:26 98.2 F 79 16 98 Intake and Output 10/06/21 10/07/21 10/07/21 22:59 06:59 14:59 Intake Total 830 Balance 830 Intake: Intake, IV Titration 830 Amount Sodium Chloride 0.9% 1, 780 000 ml @ 130 mls/hr IV . Q7H42M [facility] Rx#:[id number] cefTRIAXone 2 gm In 50 Sodium Chloride 0.9% 50 ml @ 100 mls/hr IVPB ONCE STA Rx#:[id number] Other: # Bowel Movements 3 Weight 81.647 kg PHYSICAL EXAM: VITAL SIGNS: As above GENERAL: Alert and oriented 2 ,Sitting up in bed, no acute distress, jaundiced HEENT: Conjunctivae normal. eyes round and equal, sclera icteric. NECK: Supple,No JVD. no lymphadenopathy. CARDIOVASCULAR: S1, S2 regular.No murmur RESPIRATION: Breath sounds diminished in the bases. No rhonchi or crackles. No bronchial breathing. ABDOMEN: Soft, distended, diffuse tenderness .Positive ascites.No guarding. no rigidity,Bowel sounds heard. LEGS: Positive edema NERVOUS SYSTEM: No focal deficits. Strength and sensation grossly intact. Skin: Warm and dry, no rash Results CBC & Chem 7: 10/06/21 16:52 10/07/21 05:41 Labs: Abnormal Lab Results - Last 24 Hours (Table) 10/06/21 10/06/21 10/06/21 Range/Units 16:52 16:52 16:52 WBC 11.7 H (3.8-10.6) k/uL RBC 3.27 L (4.30-5.90) m/uL Hct 38.1 L (39.0-53.0) % MCV 116.5 H (80.0-100.0) fL MCH 39.8 H (25.0-35.0) pg Neutrophils # 9.3 H (1.3-7.7) k/uL Macrocytosis Marked A PT 39.7 H (9.0-12.0) sec INR 4.0 H (<1.2) APTT 50.2 H (22.0-30.0) sec Sodium 127 L (137-145) mmol/L Potassium 5.4 H (3.5-5.1) mmol/L Chloride 97 L (98-107) mmol/L Carbon Dioxide 13 L (22-30) mmol/L BUN 71 H (9-20) mg/dL Creatinine 2.73 H (0.66-1.25) mg/dL Glucose 136 H (74-99) mg/dL Plasma Lactic Acid Clayton (0.7-2.0) mmol/L Calcium (8.4-10.2) mg/dL Phosphorus 7.1 H (2.5-4.5) mg/dL Magnesium 2.4 H (1.6-2.3) mg/dL Total Bilirubin 26.2 H* (0.2-1.3) mg/dL AST 108 H (17-59) U/L ALT 95 H (4-49) U/L Alkaline Phosphatase 135 H (38-126) U/L Ammonia (<30) umol/L Albumin 3.0 L (3.5-5.0) g/dL Lipase 557 H (23-300) U/L Urine Bilirubin (Negative) Amorphous Sediment (None) /hpf Urine Mucus (None) /hpf 10/06/21 10/06/21 10/07/21 Range/Units 16:52 20:32 05:41 WBC (3.8-10.6) k/uL RBC (4.30-5.90) m/uL Hct (39.0-53.0) % MCV (80.0-100.0) fL MCH (25.0-35.0) pg Neutrophils # (1.3-7.7) k/uL Macrocytosis PT (9.0-12.0) sec INR (<1.2) APTT (22.0-30.0) sec Sodium 129 L (137-145) mmol/L Potassium (3.5-5.1) mmol/L Chloride (98-107) mmol/L Carbon Dioxide 16 L (22-30) mmol/L BUN 75 H (9-20) mg/dL Creatinine 2.46 H (0.66-1.25) mg/dL Glucose 121 H (74-99) mg/dL Plasma Lactic Acid Clayton 3.9 H* 3.8 H* (0.7-2.0) mmol/L Calcium 8.2 L (8.4-10.2) mg/dL Phosphorus (2.5-4.5) mg/dL Magnesium 2.4 H (1.6-2.3) mg/dL Total Bilirubin 21.8 H* (0.2-1.3) mg/dL AST 102 H (17-59) U/L ALT 97 H (4-49) U/L Alkaline Phosphatase (38-126) U/L Ammonia 79 H (<30) umol/L Albumin 2.6 L (3.5-5.0) g/dL Lipase (23-300) U/L Urine Bilirubin (Negative) Amorphous Sediment (None) /hpf Urine Mucus (None) /hpf 10/07/21 10/07/21 Range/Units 09:22 10:13 WBC (3.8-10.6) k/uL RBC (4.30-5.90) m/uL Hct (39.0-53.0) % MCV (80.0-100.0) fL MCH (25.0-35.0) pg Neutrophils # (1.3-7.7) k/uL Macrocytosis PT 43.5 H (9.0-12.0) sec INR 4.4 H (<1.2) APTT (22.0-30.0) sec Sodium (137-145) mmol/L Potassium (3.5-5.1) mmol/L Chloride (98-107) mmol/L Carbon Dioxide (22-30) mmol/L BUN (9-20) mg/dL Creatinine (0.66-1.25) mg/dL Glucose (74-99) mg/dL Plasma Lactic Acid Clayton (0.7-2.0) mmol/L Calcium (8.4-10.2) mg/dL Phosphorus (2.5-4.5) mg/dL Magnesium (1.6-2.3) mg/dL Total Bilirubin (0.2-1.3) mg/dL AST (17-59) U/L ALT (4-49) U/L Alkaline Phosphatase (38-126) U/L Ammonia (<30) umol/L Albumin (3.5-5.0) g/dL Lipase (23-300) U/L Urine Bilirubin 3+ H (Negative) Amorphous Sediment Occasional H (None) /hpf Urine Mucus Rare H (None) /hpf Assessment and Plan Assessment: Cirrhosis with liver failure, possible alcohol etiology Ascites Acute hepatic encephalopathy , patient not been taking his lactulose Hyponatremia, hypovolemic, improving with IV fluid hydration Hypercoagulopathy secondary to liver failure Abnormal gallbladder ultrasound; evaluated by general surgery: sludge, without acute cholecystitis, not a surgical candidate at this time,recommending patient to follow up the liver center for possible liver transplant. Acute renal failure secondary to ATN, possible hepatorenal syndrome, baseline creatinine near 1.0 Hyperkalemia secondary to acute renal failure, spironolactone, potassium supp lementation, metabolic acidosis Metabolic acidosis secondary to acute renal failure and lactic acidosis Plan: Continue on current medication regime ,monitoring and symptomatic treatment. Vitamin K ordered, repeat labs ordered. Maintained on lactulose.Paracentesis pending stable INR (INR 4.0 yesterday, now increased to 4.4). Fluid restrictions, Lasix IV push, oral sodium bicarb as per nephrology. Multiple consults following, GI,nephrology, neurology, general surgery. Prognosis cardiac and multiple complex medical issues. The impression and plan of care has been dictated as directed. : I performed a history and examination of this patient, discussed the same with the dictator. I agree with the dictator's note ,documented as a scribe. Any additional findings or plans will be noted.
[2021-10-07 18:55] LABS: % Iron Saturation 91.48 (15.00-50.00)
[2021-10-07 20:41] LABS: Protein, Total 6.8 g/dL (5.7-8.2)
[2021-10-07] MEDS: SERTRALINE 50 MG TAB PO SCH (22:47)
[2021-10-08] MEDS: ALBUMIN HUMAN 25% 50 ML in EMPTY BAG 1 BAG IVPB SCH ×2 (00:12→02:44)
[2021-10-08] MEDS: MULTIVITAMINS, THERA 1 EACH TAB PO SCH (09:09)
[2021-10-08] MEDS: LACTULOSE 20 GM/30 ML CUP PO SCH ×3 (09:09→21:50)
[2021-10-08] MEDS: FUROSEMIDE 10 MG/ML 4 ML VIAL IV SCH (09:09)
[2021-10-08] MEDS: THIAMINE 100 MG/ML 2 ML VIAL IVP SCH (09:09)
[2021-10-08] MEDS: SODIUM BICARBONATE TAB 650 MG TAB PO SCH ×3 (09:09→21:50)
--- NOTE | 2021-10-08 09:23 | P.PN ---
Subjective Patient is seen in follow-up for acute kidney injury. Morning labs pending. More awake today. Urine output 950 mL in the last 24 hours. On IV Lasix. Vital signs stable.d Head exam is unremarkable. LUNGS: Breath sounds decreased. HEART: Rate and Rhythm are regular. ABDOMEN: Soft, distention noted. EXTREMITITES: Trace edema. Diffuse jaundice noted. Objective - Vital Signs Vital signs: Vital Signs Temp 99.0 F 10/08/21 07:59 Pulse 93 10/08/21 07:59 Resp 17 10/08/21 07:59 BP 146/78 10/08/21 07:59 Pulse Ox 96 10/08/21 07:59 Intake & Output 10/07/21 10/08/21 10/08/21 18:59 06:59 18:59 Intake Total 1080 2000 Output Total 500 450 Balance 580 1550 Weight 81.647 kg Intake: Oral 1080 2000 Output: Urine 500 450 Other: Voiding Method Urinal # Bowel Movements 4 6 - Labs CBC & Chem 7: 10/06/21 16:52 10/07/21 05:41 Labs: Abnormal Lab Results - Last 24 Hours (Table) 10/07/21 10/07/21 10/07/21 Range/Units 05:41 05:41 09:22 PT (9.0-12.0) sec INR (<1.2) TIBC 131 L (228-460) ug/dL % Saturation 91.48 H (15.00-50.00) Transferrin 93.7 L (204.0-354.0) mg/dL Vitamin B12 >2000.0 H (200.0-944.0) pg/mL Urine Bilirubin 3+ H (Negative) Amorphous Sediment Occasional H (None) /hpf Urine Mucus Rare H (None) /hpf 10/07/21 Range/Units 10:13 PT 43.5 H (9.0-12.0) sec INR 4.4 H (<1.2) TIBC (228-460) ug/dL % Saturation (15.00-50.00) Transferrin (204.0-354.0) mg/dL Vitamin B12 (200.0-944.0) pg/mL Urine Bilirubin (Negative) Amorphous Sediment (None) /hpf Urine Mucus (None) /hpf Assessment and Plan Plan: Assessment: 1. Acute kidney injury secondary to ATN. Concern for hepatorenal syndrome and pigment nephropathy from high bilirubin. Creatinine 2.73 on admission and was 2.46 yesterday. Baseline creatinine near 1. No hydronephrosis noted on kidney ultrasound. No proteinuria on UA. 2. Acute liver failure. Likely alcohol induced. GI following. 3. Hyperkalemia secondary to acute kidney injury, metabolic acidosis, spironolactone and potassium supplementation. Better. 4. Ascites. 5. Hypovolemic hyponatremia initially improved with IV hydration. Now hypervolemic with ascites. 6. Metabolic acidosis secondary to acute kidney injury and lactic acidosis. On oral bicarbonate. Plan: Maintain IV Lasix. 1200 mL fluid restriction. Will add spironolactone if potassium level stable today. Will need paracentesis. I will give him IV albumin pre-and post procedure. Continue to monitor renal function and urine output. Follow-up morning labs.
[2021-10-08 09:29] LABS: Magnesium 2.4 mg/dL (1.5-2.4)
[2021-10-08 09:44] LABS: African American GFR (CKD) 27.1 (60.0-200.0); Albumin 2.5 g/dL (3.8-4.9); Albumin/Globulin Ratio 0.74 (1.60-3.17); Anion Gap 14.5 mmol/L (10.00-18.00); BUN/Creat Ratio 23.84 Ratio (12.00-20.00); Blood Urea Nitrogen 73.9 mg/dL (9.0-27.0); Calcium 8.3 mg/dL (8.7-10.3); Carbon Dioxide 13.5 mmol/L (20.0-27.5); Globulin 3.4 g/dL (1.6-3.3); Non-African American GFR(CKD) 23.4 (60.0-200.0); Potassium 4.6 mmol/L (3.5-5.5); Total Bilirubin 21.1 mg/dL (0.30-1.20); Total Protein 5.9 g/dL (6.2-8.2)
[2021-10-08 09:59] LABS: Alpha Fetoprotein, Tumor Mkr 2.7 ng/mL (0.00-7.90); Ceruloplasmin 14.6 mg/dL (20.0-60.0)
[2021-10-08 10:31] LABS: INR 2.74 (0.90-1.11); Prothrombin Time 28.7 sec (9.9-11.9)
[2021-10-08 11:05] LABS: Basophils # (A) 0.03 X 10*3/uL (0.00-0.10); Basophils % (A) 0.2 %; Eosinophils # (A) 0.15 X 10*3/uL (0.04-0.35); Eosinophils % (A) 1.2 %; HCT 29.1 % (39.6-50.0); HGB 10.4 g/dL (13.0-17.0); Immature Grans, Automated 0.8 %; Lymphocytes # (A) 1.24 X 10*3/uL (0.90-5.00); Lymphocytes % (A) 9.7 %; MCH 38.8 pg (27.0-32.0); MCHC 35.7 g/dL (32.0-37.0); MCV 108.6 fL (80.0-97.0); Mean Platelet Volume 10.4 fL (9.5-12.2); Monocytes # (A) 1.94 X 10*3/uL (0.20-1.00); Monocytes % (A) 15.2 %; NRBC Per 100 WBC 0 /100 WBCS (0.0-0.0); Neutrophils # (A) 9.34 X 10*3/uL (1.80-7.70); Neutrophils % (A) 72.9 %; Platelet Count 122 X 10*3/uL (140-440); RBC 2.68 X 10*6/uL (4.40-5.60); RDW 16.4 % (11.5-14.5)
[2021-10-08 11:06] LABS: Macrocytosis (M) 2+
[2021-10-08] MEDS ORDERED: PHYTONADIONE 10 MG in SODIUM CHLORIDE 0.9% 50 ML IVPB STA (11:24)
[2021-10-08] MEDS: FOLIC ACID 1 MG TAB PO SCH (11:59)
--- NOTE | 2021-10-08 12:06 | P.PN ---
Subjective Progress Note Date: 10/08/21 This is a 41-year-old gentleman with past medical history of recently diagnosed liver failure and cirrhosis in a patient with history of alcohol use-states he drank 1-2 cans of beer daily ( 12 oz.) with last drink approximately 2 months ago,(-denied acetaminophen use, reports no alcohol abuse) depression, gastroesophageal reflux disease, presented to ER with increased abdominal distention,jaundiced with increased confusion. reports ,he was not taking his lactulose as prescribed. also reports liver enzymes monitored regularly with PCP. Denies abdominal pain. Abdominal ultrasound performed in August 2021 reporting heterogenesis hyperechoic appearance of liver with surrounding ascites suggestive of underlying hepatocellular disease or cirrhosis without biliary dilatation. Pancreas tail obscured by overlying bowel gas. Gallbladder diffusely irregular wall thickening with "mass like" protections and pericholecystectic fluid. Renal ultrasound pending. Abdominal ultrasound rep orting large amount of abdominal ascites, echogenic bile in the gallbladder, large portal vein consistent with some portal venous hypertension, no thrombosis seen.Brain CT reported no acute intracranial abnormality, fluid density in the right side probably virtual chelsey space-further evaluated between reading radiologist and neurologist-reporting it to be benign and they did not feel that it was Virchow Chelsey space and he felt it was more cystic. Brain MRI recommended inpatient or outpatient . Chest x-ray reporting bilateral basilar atelectasis with some elevation of the right diaphragm.Maintaining O2 sats in the 90s on room air. EKG reporting sinus rhythm, troponin negative 1, denies chest pain, palpitations.WBC 11.7, hemoglobin 13, hematocrit 38, platelets 157, INR 4.0. Sodium 129, potassium 5.1, bicarb 16, BUN 75, creatinine decreased to 2.46. On admission , MCV 116.5 ,Total bili 26.2, AST 108, ALT 95, alk phos 135, ammonia 79; currently total bili 21.8, AST 102, ALT 97, alk phos 122, ammonia 22. Albumin 2.6. Lipase is a 557. Recent nonreactive hepatitis panel 09/04/21.Earlier this morning, unable to obtain temperature greater than 94 and bear hugger placed, currently 97.4 axillary. Maintained on IV hydration, with lactic acid decreased from 3.8-1.3, vitamin K, thiamine, lactulose, albumin, sodium bicarb empiric ceftriaxone for SBP. 10/08/2021 Evaluated by multiple consults yesterday, recommendations noted and appreciated. Maintained on 1200 mL fluid restriction, diuresing well on Lasix with abdomen and leg edema decreased-softer. Labs pending. Denies chest pain, palpitations or shortness of breath. T-max 99. Objective - Vital Signs Vital signs: Vital Signs Temp 99.0 F 10/08/21 07:59 Pulse 93 10/08/21 07:59 Resp 17 10/08/21 07:59 BP 146/78 10/08/21 07:59 Pulse Ox 96 10/08/21 07:59 Intake & Output 10/07/21 10/08/21 10/08/21 18:59 06:59 18:59 Intake Total 1080 2000 Output Total 500 450 Balance 580 1550 Weight 81.647 kg Intake: Oral 1080 2000 Output: Urine 500 450 Other: Voiding Method Urinal Indwelling Catheter # Bowel Movements 4 6 - Exam PHYSICAL EXAM: VITAL SIGNS: As above GENERAL: Alert and oriented 2-disoriented to year. Sitting up in bed, no acute distress, jaundiced. Minimally converses. HEENT: Conjunctivae normal. eyes round and equal, sclera icteric. NECK: Supple,No JVD. no lymphadenopathy. CARDIOVASCULAR: S1, S2 regular.No murmur RESPIRATION: Breath sounds diminished in the bases. No rhonchi or crackles. No bronchial breathing. ABDOMEN: Softer, distended, diffuse tenderness .Positive ascites.No guarding. no rigidity,Bowel sounds heard. LEGS: Decreasing edema NERVOUS SYSTEM: No focal deficits. Strength and sensation grossly intact. Skin: Warm and dry, no rash - Labs CBC & Chem 7: 10/08/21 04:10 10/08/21 04:10 Labs: Abnormal Lab Results - Last 24 Hours (Table) 10/07/21 10/07/21 10/07/21 Range/Units 05:41 05:41 10:13 PT 43.5 H (9.0-12.0) sec INR 4.4 H (<1.2) Sodium (135-145) mmol/L Chloride (96-109) mmol/L Carbon Dioxide (20.0-27.5) mmol/L BUN (9.0-27.0) mg/dL Creatinine (0.6-1.5) mg/dL Est GFR (CKD-EPI)AfAm (60.0-200.0) Est GFR (CKD-EPI)NonAf (60.0-200.0) BUN/Creatinine Ratio (12.00-20.00) Ratio Glucose (70-110) mg/dL Calcium (8.7-10.3) mg/dL TIBC 131 L (228-460) ug/dL % Saturation 91.48 H (15.00-50.00) Transferrin 93.7 L (204.0-354.0) mg/dL Total Bilirubin (0.30-1.20) mg/dL AST (14-35) U/L ALT (10-49) U/L Total Protein (6.2-8.2) g/dL Albumin (3.8-4.9) g/dL Globulin (1.6-3.3) g/dL Albumin/Globulin Ratio (1.60-3.17) g/dL Ceruloplasmin (20.0-60.0) mg/dL Vitamin B12 >2000.0 H (200.0-944.0) pg/mL 10/08/21 10/08/21 10/08/21 Range/Units 04:10 04:10 04:10 PT 28.7 H (9.0-12.0) sec INR 2.74 H (<1.2) Sodium 121 L (135-145) mmol/L Chloride 93 L (96-109) mmol/L Carbon Dioxide 13.5 L (20.0-27.5) mmol/L BUN 73.9 H (9.0-27.0) mg/dL Creatinine 3.1 H (0.6-1.5) mg/dL Est GFR (CKD-EPI)AfAm 27.1 L (60.0-200.0) Est GFR (CKD-EPI)NonAf 23.4 L (60.0-200.0) BUN/Creatinine Ratio 23.84 H (12.00-20.00) Ratio Glucose 115 H (70-110) mg/dL Calcium 8.3 L (8.7-10.3) mg/dL TIBC (228-460) ug/dL % Saturation (15.00-50.00) Transferrin (204.0-354.0) mg/dL Total Bilirubin 21.10 H* (0.30-1.20) mg/dL AST 102 H (14-35) U/L ALT 104 H (10-49) U/L Total Protein 5.9 L (6.2-8.2) g/dL Albumin 2.5 L (3.8-4.9) g/dL Globulin 3.4 H (1.6-3.3) g/dL Albumin/Globulin Ratio 0.74 L (1.60-3.17) g/dL Ceruloplasmin 14.6 L (20.0-60.0) mg/dL Vitamin B12 (200.0-944.0) pg/mL Assessment and Plan Assessment: Cirrhosis with liver failure, possible alcohol etiology Ascites Acute hepatic encephalopathy , patient not been taking his lactulose Hyponatremia,initially hypovolemic. Hypercoagulopathy secondary to liver failure Abnormal gallbladder ultrasound, general surgery following Acute renal failure secondary to ATN, possible hepatorenal syndrome, baseline creatinine near 1.0 Hyperkalemia secondary to acute renal failure, spironolactone, potassium supplementation, metabolic acidosis Metabolic acidosis secondary to acute renal failure and lactic acidosis Plan: Continue on current medication regime ,monitoring and symptomatic treatment. LAbs pending, possibly repeat Vitamin K pending INR. Maintain lactulose,sodium bicarb. Fluid restrictions, diuretics as per nephrology .Paracentesis pending stable INR. updated at bedside. Prognosis guarded given multiple complex medical issues. The impression and plan of care has been dictated as directed. : I performed a history and examination of this patient, discussed the same with the dictator. I agree with the dictator's note ,documented as a scribe. Any additional findings or plans will be noted.
[2021-10-08] MEDS ORDERED: SODIUM BICARB 8.4% 50 ML SYR (1 MEQ/ML) IV STA (12:54)
[2021-10-08] MEDS ORDERED: TOLVAPTAN 15 MG 1/2 TABLET PO ONE (13:30)
[2021-10-08] MEDS: SPIRONOLACTONE 25 MG TAB PO SCH (14:36)
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
[2021-10-08 17:35] LABS: HCT 32.1 % (39.0-53.0); HGB 11.3 gm/dL (13.0-17.5); MCH 40.3 pg (25.0-35.0); MCHC 35.2 g/dL (31.0-37.0); MCV 114.4 fL (80.0-100.0); Mean Platelet Volume 8.8; Platelet Count 124 k/uL (150-450); RBC 2.81 m/uL (4.30-5.90); RDW 14.9 % (11.5-15.5); WBC 12.4 k/uL (3.8-10.6)
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
[2021-10-08 17:52] LABS: Macrocytosis Marked
[2021-10-09 04:56] LABS: INR 2.3 (<1.2); Prothrombin Time 23.5 sec (9.0-12.0)
[2021-10-09 08:24] LABS: Albumin 2.77 g/dL (3.80-4.90); Gamma Globulin 2.16 g/dL (0.70-1.50)
[2021-10-09] MEDS: THIAMINE 100 MG/ML 2 ML VIAL IVP SCH (08:37)
[2021-10-09] MEDS: FUROSEMIDE 10 MG/ML 4 ML VIAL IV SCH (08:37)
[2021-10-09] MEDS: MULTIVITAMINS, THERA 1 EACH TAB PO SCH (08:37)
[2021-10-09] MEDS: SODIUM BICARBONATE TAB 650 MG TAB PO SCH ×3 (08:38→22:00)
[2021-10-09] MEDS: FOLIC ACID 1 MG TAB PO SCH (08:38)
[2021-10-09] MEDS: SPIRONOLACTONE 25 MG TAB PO SCH ×2 (08:38→21:00)
[2021-10-09] MEDS: LACTULOSE 20 GM/30 ML CUP PO SCH ×2 (08:38→17:29)
--- NOTE | 2021-10-09 09:22 | P.PN ---
Subjective Patient is seen in follow-up for acute kidney injury. Renal function worsened and sodium level dropped yesterday. Patient is currently on IV Lasix as well as spironolactone. He also received 1 dose of % yesterday. Urine output documented as 950 mL as of 10/08/2021. Patient is awake but still confused. present at bedside. Vital signs stable.d Head exam is unremarkable. LUNGS: Breath sounds decreased. HEART: Rate and Rhythm are regular. ABDOMEN: Soft, distention noted. EXTREMITITES: Trace edema. Diffuse jaundice noted. Objective - Vital Signs Vital signs: Vital Signs Temp 97.7 F 10/09/21 07:52 Pulse 88 10/09/21 07:52 Resp 16 10/09/21 07:52 BP 93/52 10/09/21 07:52 Pulse Ox 96 10/09/21 07:52 Intake & Output 10/08/21 10/09/21 10/09/21 18:59 06:59 18:59 Intake Total 1080 110 Output Total 250 Balance 830 110 Intake: Oral 1080 110 Output: Urine 250 Other: Voiding Method Indwelling Catheter # Bowel Movements 21 12 - Labs CBC & Chem 7: 10/08/21 17:05 10/08/21 04:10 Labs: Abnormal Lab Results - Last 24 Hours (Table) 10/07/21 10/08/21 10/08/21 Range/Units 05:41 04:10 04:10 WBC (4.50-10.00) X 10*3/uL RBC (4.40-5.60) X 10*6/uL Hgb (13.0-17.0) g/dL Hct (39.6-50.0) % MCV (80.0-97.0) fL MCH (27.0-32.0) pg RDW (11.5-14.5) % Plt Count (140-440) X 10*3/uL Plt Count Comment Immature Gran # (0.00-0.04) X 10*3/uL Neutrophils # (1.80-7.70) X 10*3/uL Monocytes # (0.20-1.00) X 10*3/uL Macrocytosis PT (9.9-11.9) sec INR (0.90-1.11) Sodium 121 L (135-145) mmol/L Chloride 93 L (96-109) mmol/L Carbon Dioxide 13.5 L (20.0-27.5) mmol/L BUN 73.9 H (9.0-27.0) mg/dL Creatinine 3.1 H (0.6-1.5) mg/dL Est GFR (CKD-EPI)AfAm 27.1 L (60.0-200.0) Est GFR (CKD-EPI)NonAf 23.4 L (60.0-200.0) BUN/Creatinine Ratio 23.84 H (12.00-20.00) Ratio Glucose 115 H (70-110) mg/dL Calcium 8.3 L (8.7-10.3) mg/dL Total Bilirubin 21.10 H* (0.30-1.20) mg/dL AST 102 H (14-35) U/L ALT 104 H (10-49) U/L Total Protein 5.9 L (6.2-8.2) g/dL Albumin 2.5 L (3.8-4.9) g/dL Albumin (PEP) 2.77 L (3.80-4.90) g/dL Globulin 3.4 H (1.6-3.3) g/dL Albumin/Globulin Ratio 0.74 L (1.60-3.17) g/dL Vcszu-4-Uroqywzlu 0.45 L (0.60-1.00) g/dL Gamma Globulins 2.16 H (0.70-1.50) g/dL Ceruloplasmin 14.6 L (20.0-60.0) mg/dL 10/08/21 10/08/21 10/08/21 Range/Units 04:10 04:10 17:05 WBC 12.80 H 12.4 H (4.50-10.00) X 10*3/uL RBC 2.68 L 2.81 L (4.40-5.60) X 10*6/uL Hgb 10.4 L 11.3 L (13.0-17.0) g/dL Hct 29.1 L 32.1 L (39.6-50.0) % MCV 108.6 H 114.4 H (80.0-97.0) fL MCH 38.8 H 40.3 H (27.0-32.0) pg RDW 16.4 H (11.5-14.5) % Plt Count 122 L 124 L (140-440) X 10*3/uL Plt Count Comment DECREASED A Immature Gran # 0.10 H (0.00-0.04) X 10*3/uL Neutrophils # 9.34 H (1.80-7.70) X 10*3/uL Monocytes # 1.94 H (0.20-1.00) X 10*3/uL Macrocytosis Marked A PT 28.7 H (9.9-11.9) sec INR 2.74 H (0.90-1.11) Sodium (135-145) mmol/L Chloride (96-109) mmol/L Carbon Dioxide (20.0-27.5) mmol/L BUN (9.0-27.0) mg/dL Creatinine (0.6-1.5) mg/dL Est GFR (CKD-EPI)AfAm (60.0-200.0) Est GFR (CKD-EPI)NonAf (60.0-200.0) BUN/Creatinine Ratio (12.00-20.00) Ratio Glucose (70-110) mg/dL Calcium (8.7-10.3) mg/dL Total Bilirubin (0.30-1.20) mg/dL AST (14-35) U/L ALT (10-49) U/L Total Protein (6.2-8.2) g/dL Albumin (3.8-4.9) g/dL Albumin (PEP) (3.80-4.90) g/dL Globulin (1.6-3.3) g/dL Albumin/Globulin Ratio (1.60-3.17) g/dL Egpln-8-Sdwrmlkzx (0.60-1.00) g/dL Gamma Globulins (0.70-1.50) g/dL Ceruloplasmin (20.0-60.0) mg/dL 10/09/21 Range/Units 03:49 WBC (4.50-10.00) X 10*3/uL RBC (4.40-5.60) X 10*6/uL Hgb (13.0-17.0) g/dL Hct (39.6-50.0) % MCV (80.0-97.0) fL MCH (27.0-32.0) pg RDW (11.5-14.5) % Plt Count (140-440) X 10*3/uL Plt Count Comment Immature Gran # (0.00-0.04) X 10*3/uL Neutrophils # (1.80-7.70) X 10*3/uL Monocytes # (0.20-1.00) X 10*3/uL Macrocytosis PT 23.5 H (9.9-11.9) sec INR 2.3 H (0.90-1.11) Sodium (135-145) mmol/L Chloride (96-109) mmol/L Carbon Dioxide (20.0-27.5) mmol/L BUN (9.0-27.0) mg/dL Creatinine (0.6-1.5) mg/dL Est GFR (CKD-EPI)AfAm (60.0-200.0) Est GFR (CKD-EPI)NonAf (60.0-200.0) BUN/Creatinine Ratio (12.00-20.00) Ratio Glucose (70-110) mg/dL Calcium (8.7-10.3) mg/dL Total Bilirubin (0.30-1.20) mg/dL AST (14-35) U/L ALT (10-49) U/L Total Protein (6.2-8.2) g/dL Albumin (3.8-4.9) g/dL Albumin (PEP) (3.80-4.90) g/dL Globulin (1.6-3.3) g/dL Albumin/Globulin Ratio (1.60-3.17) g/dL Lacxf-1-Wtiletjse (0.60-1.00) g/dL Gamma Globulins (0.70-1.50) g/dL Ceruloplasmin (20.0-60.0) mg/dL Assessment and Plan Plan: Assessment: 1. Acute kidney injury secondary to ATN. Concern for hepatorenal syndrome and pigment nephropathy from high bilirubin. Renal function worse. Creatinine 3.1 yesterday. Baseline creatinine near 1. No hydronephrosis noted on kidney ultrasound. No proteinuria on UA. 2. Acute liver failure. Likely alcohol induced. GI following. 3. Hyperkalemia secondary to acute kidney injury, metabolic acidosis, spironolactone and potassium supplementation. Better. 4. Ascites. 5. Hypovolemic hyponatremia initially improved with IV hydration. Now hypervolemic with ascites. 6. Metabolic acidosis secondary to acute kidney injury and lactic acidosis. On oral bicarbonate. Plan: Maintain IV Lasix. Maintain spironolactone. Will increase dose of potassium level stable. 1200 mL fluid restriction. Paracentesis pending. I will give him IV albumin pre-and post procedure. Continue to monitor renal function and urine output. Follow-up morning labs. Status post [facility] 10/08/2021. Awaits transfer to [facility]. Add midodrine. Hold for systolic blood pressure greater than 110.
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
[2021-10-09 09:58] LABS: Magnesium 2.4 mg/dL (1.5-2.4)
[2021-10-09 10:09] LABS: African American GFR (CKD) 19.9 (60.0-200.0); Albumin 2.3 g/dL (3.8-4.9); Albumin/Globulin Ratio 0.72 (1.60-3.17); BUN/Creat Ratio 19.33 Ratio (12.00-20.00); Blood Urea Nitrogen 77.3 mg/dL (9.0-27.0); Calcium 8.1 mg/dL (8.7-10.3); Globulin 3.2 g/dL (1.6-3.3); Non-African American GFR(CKD) 17.2 (60.0-200.0); Potassium 4.1 mmol/L (3.5-5.5); Total Bilirubin 21.8 mg/dL (0.30-1.20); Total Protein 5.5 g/dL (6.2-8.2)
--- NOTE | 2021-10-09 10:11 | P.DS ---
Providers Date of admission: 10/06/21 18:23 Expected date of discharge: 10/09/21 Attending physician: Alvaro Dasilva Consults: 10/06/21 18:38 Consult Physician Routine Consulting Provider: Shannan Meeks Consult Reason/Comments: ascites, hyperammonemia, hyperbilirubinemi Do you want consulting provider notified?: Yes 10/06/21 18:39 Consult Physician Routine Consulting Provider: Raina Galindo Consult Reason/Comments: elva Do you want consulting provider notified?: Yes 10/06/21 18:41 Consult Physician Routine Consulting Provider: Sergo Phelps Consult Reason/Comments: altered mental hyperammonemia Do you want consulting provider notified?: Yes, Notify in am 10/07/21 11:04 Consult Physician Routine Consulting Provider: Cole Cabrera Consult Reason/Comments: abnormal US, gallbladder wall thickening, sludge, jaundice Do you want consulting provider notified?: Yes Primary care physician: Alvaro Dasilva [facility] Course: Cirrhosis with liver failure, possible alcohol etiology-the patient denies heavy alcohol use past or present, possible drug-induced hepatitis ,etiology unclear. Ascites Acute hepatic encephalopathy , patient had not been taking his lactulose Hyperbilirubinemia Hyponatremia,initially hypovolemic. Hypercoagulopathy secondary to liver failure Abnormal gallbladder ultrasound, general surgery following Acute renal failure secondary to ATN, possible hepatorenal syndrome, baseline creatinine near 1.0 Hyperkalemia secondary to acute renal failure, spironolactone, potassium supplementation, metabolic acidosis Metabolic acidosis secondary to acute renal failure and lactic acidosis This is a 41-year-old gentleman with past medical history of recently diagnosed liver failure and cirrhosis in a patient with history of alcohol use-states he drank 1-2 cans of beer daily ( 12 oz.) with last drink approximately 2 months ago,(-denied acetaminophen use, reports no alcohol abuse) depression, gastroesophageal reflux disease, presented to ER with increased abdominal distention,jaundiced with increased confusion. reports ,he was not taking his lactulose as prescribed. also reports liver enzymes monitored regularly with PCP. Denies abdominal pain. Abdominal ultrasound performed in August 2021 reporting heterogenesis hyperechoic appearance of liver with surrounding ascites suggestive of underlying hepatocellular disease or cirrhosis without biliary dilatation. Pancreas tail obscured by overlying bowel gas. Gallbladder diffusely irregular wall thickening with "mass like" protections and pericholecystectic fluid. Renal ultrasound pending. Abdominal ultrasound reporting large amount of abdominal ascites, echogenic bile in the gallbladder, large portal vein consistent with some portal venous hypertension, no thrombosis seen.Brain CT reported no acute intracranial abnormality, fluid density in the right side probably virtual mehdi space-further evaluated between reading radiologist and neurologist-reporting it to be benign and they did not feel that it was Virchow Mehdi space and he felt it was more cystic. Brain MRI recommended inpatient or outpatient . Chest x-ray reporting bilateral basilar atelectasis with some elevation of the right diaphragm.Maintaining O2 sats in the 90s on room air. EKG reporting sinus rhythm, troponin negative 1, denies chest pain, palpitations.WBC 11.7, hemoglobin 13, hematocrit 38, platelets 157, INR 4.0. Sodium 129, potassium 5.1, bicarb 16, BUN 75, creatinine decreased to 2.46. On admission , MCV 116.5 ,Total bili 26.2, AST 108, ALT 95, alk phos 135, ammonia 79; currently total bili 21.8, AST 102, ALT 97, alk phos 122, ammonia 22. Albumin 2.6. Lipase is a 557. Recent nonreactive hepatitis panel 09/04/21.Earlier this morning, unable to obtain temperature greater than 94 and bear hugger placed, currently 97.4 axillary. Maintained on IV hydration, with lactic acid decreased from 3.8-1.3, vitamin K, thiamine, lactulose, albumin, sodium bicarb empiric ceftriaxone for SBP. 10/08/2021 Evaluated by multiple consults yesterday, recommendations noted and appreciated. Maintained on 1200 mL fluid restriction, diuresing well on Lasix with abdomen and leg edema decreased-softer. Labs pending. Denies chest pain, palpitations or shortness of breath. T-max 99. INR decreased to 2.3. Per GI, liver serologies have been negative, minimal improvement with cholestatic pattern; recommending transfer to tertiary care center for further evaluation and management related to unknown etiology and concern for liver failure. Patient and agree to transfer. Patient will transfer to [facility] and is stable condition with guarded prognosis pending bed availability. The impression and plan of care has been dictated as directed. : I performed a history and examination of this patient, discussed the same with the dictator. I agree with the dictator's note ,documented as a scribe. Any additional findings or plans will be noted. Patient Condition at Discharge: Stable Plan - Discharge Summary Discharge Rx Participant: No New Discharge Prescriptions: No Action Multivitamins, Thera [Multivitamin (formulary)] 1 tab PO DAILY Lactulose 15 gm PO BID Spironolactone 50 mg PO BID Sertraline [Zoloft] 50 mg PO HS Potassium Chloride ER [K-Dur 20] 20 meq PO DAILY Discharge Medication List Lactulose 15 gm PO BID 10/06/21 [History] Multivitamins, Thera [Multivitamin (formulary)] 1 tab PO DAILY 10/06/21 [History] Potassium Chloride ER [K-Dur 20] 20 meq PO DAILY 10/06/21 [History] Sertraline [Zoloft] 50 mg PO HS 10/06/21 [History] Spironolactone 50 mg PO BID 10/06/21 [History] Follow up Appointment(s)/Referral(s): Alvaro Dasilva DO [Primary Care Provider] - 3 Days Activity/Diet/Wound Care/Special Instructions: transfer to [facility] as rec. per GI Dr. Herrera
[2021-10-09 10:25] LABS: HCT 28.1 % (39.6-50.0); MCH 38.3 pg (27.0-32.0); MCHC 35.6 g/dL (32.0-37.0); MCV 107.7 fL (80.0-97.0); Mean Platelet Volume 10.4 fL (9.5-12.2); NRBC Per 100 WBC 0 /100 WBCS (0.0-0.0); Platelet Count 121 X 10*3/uL (140-440); RBC 2.61 X 10*6/uL (4.40-5.60); RDW 15.9 % (11.5-14.5); WBC 12.27 X 10*3/uL (4.50-10.00)
[2021-10-09 10:26] LABS: Acanthocytes 2+; Macrocytosis (M) 2+
[2021-10-09] MEDS ORDERED: HYDROmorphone 0.5 MG/0.5 ML SYRINGE IVP STA (12:06)
[2021-10-09] MEDS: MIDODRINE 5 MG TAB PO SCH ×2 (12:06→17:29)
[2021-10-09] MEDS ORDERED: HYDROmorphone 1 MG/ML 1 ML SYRINGE IVP STA (12:24)
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
[2021-10-10] MEDS: LACTULOSE 20 GM/30 ML CUP PO SCH ×4 (01:04→20:33)
[2021-10-10] MEDS: MIDODRINE 5 MG TAB PO SCH ×3 (07:39→18:21)
[2021-10-10] MEDS: SODIUM BICARBONATE TAB 650 MG TAB PO SCH ×3 (07:39→20:45)
[2021-10-10] MEDS: MULTIVITAMINS, THERA 1 EACH TAB PO SCH (07:39)
[2021-10-10] MEDS: FOLIC ACID 1 MG TAB PO SCH (07:39)
[2021-10-10] MEDS: SPIRONOLACTONE 25 MG TAB PO SCH ×2 (07:39→20:45)
[2021-10-10] MEDS: THIAMINE 100 MG/ML 2 ML VIAL IVP SCH (08:07)
--- NOTE | 2021-10-10 09:24 | P.PN ---
Subjective Patient is seen in follow-up for acute kidney injury. Renal function worsening. Sodium 128 yesterday. Patient is currently on IV Lasix as well as spironolactone. Urine output not accurately documented. Discussed with the nurse. Oral intake is fair. Vital signs stable. Head exam is unremarkable. LUNGS: Breath sounds decreased. HEART: Rate and Rhythm are regular. ABDOMEN: Soft, distention noted. EXTREMITITES: Trace edema. Diffuse jaundice noted. Objective - Vital Signs Vital signs: Vital Signs Temp 96.9 F L 10/10/21 02:00 Pulse 81 10/10/21 02:00 Resp 18 10/10/21 02:00 BP 98/55 10/10/21 02:00 Pulse Ox 96 10/10/21 08:22 Intake & Output 10/09/21 10/10/21 10/10/21 18:59 06:59 18:59 Intake Total 110 240 Output Total 200 Balance -90 240 Weight 81.647 kg Intake: Oral 110 240 Output: Urine 200 Other: # Bowel Movements 4 10 3 - Labs CBC & Chem 7: 10/09/21 03:49 10/09/21 03:49 Labs: Abnormal Lab Results - Last 24 Hours (Table) 10/08/21 10/09/21 10/09/21 Range/Units 04:10 03:49 03:49 WBC 12.27 H (4.50-10.00) X 10*3/uL RBC 2.61 L (4.40-5.60) X 10*6/uL Hgb 10.0 L (13.0-17.0) g/dL Hct 28.1 L (39.6-50.0) % MCV 107.7 H (80.0-97.0) fL MCH 38.3 H (27.0-32.0) pg RDW 15.9 H (11.5-14.5) % Plt Count 121 L (140-440) X 10*3/uL Plt Count Comment DECREASED A Sodium 128 L (135-145) mmol/L Carbon Dioxide 18.0 L (20.0-27.5) mmol/L BUN 77.3 H (9.0-27.0) mg/dL Creatinine 4.0 H (0.6-1.5) mg/dL Est GFR (CKD-EPI)AfAm 19.9 L (60.0-200.0) Est GFR (CKD-EPI)NonAf 17.2 L (60.0-200.0) Glucose 117 H (70-110) mg/dL Calcium 8.1 L (8.7-10.3) mg/dL Ferritin 2549.0 H (22.0-322.0) ng/mL Total Bilirubin 21.80 H* (0.30-1.20) mg/dL AST 90 H (14-35) U/L ALT 100 H (10-49) U/L Ammonia (<30) umol/L Total Protein 5.5 L (6.2-8.2) g/dL Albumin 2.3 L (3.8-4.9) g/dL Albumin/Globulin Ratio 0.72 L (1.60-3.17) g/dL 10/09/21 Range/Units 09:53 WBC (4.50-10.00) X 10*3/uL RBC (4.40-5.60) X 10*6/uL Hgb (13.0-17.0) g/dL Hct (39.6-50.0) % MCV (80.0-97.0) fL MCH (27.0-32.0) pg RDW (11.5-14.5) % Plt Count (140-440) X 10*3/uL Plt Count Comment Sodium (135-145) mmol/L Carbon Dioxide (20.0-27.5) mmol/L BUN (9.0-27.0) mg/dL Creatinine (0.6-1.5) mg/dL Est GFR (CKD-EPI)AfAm (60.0-200.0) Est GFR (CKD-EPI)NonAf (60.0-200.0) Glucose (70-110) mg/dL Calcium (8.7-10.3) mg/dL Ferritin (22.0-322.0) ng/mL Total Bilirubin (0.30-1.20) mg/dL AST (14-35) U/L ALT (10-49) U/L Ammonia 50 H (<30) umol/L Total Protein (6.2-8.2) g/dL Albumin (3.8-4.9) g/dL Albumin/Globulin Ratio (1.60-3.17) g/dL Assessment and Plan Plan: Assessment: 1. Acute kidney injury secondary to ATN. Concern for hepatorenal syndrome and pigment nephropathy from high bilirubin. Renal function worse. Creatinine 4.0 yesterday. Baseline creatinine near 1. No hydronephrosis noted on kidney ultrasound. No proteinuria on UA. 2. Acute liver failure. Likely alcohol induced. GI following. 3. Hyperkalemia secondary to acute kidney injury, metabolic acidosis, spironolactone and potassium supplementation. Better. 4. Ascites. 5. Hypovolemic hyponatremia initially improved with IV hydration. Now hypervolemic with ascites. 6. Metabolic acidosis secondary to acute kidney injury and lactic acidosis. On oral bicarbonate. Plan: Change Lasix to 40 mg orally once daily. Maintain spironolactone. 1200 mL fluid restriction. Paracentesis pending. I will give him IV albumin pre-and post procedure. Continue to monitor renal function and urine output. Follow-up morning labs. Status post [facility] 10/08/2021. Awaits transfer to [facility]. Increase dose of midodrine. Hold for systolic blood pressure greater than 110. Continue to assess daily for need for renal replacement therapy. This was discussed with the patient's at bedside.
[2021-10-10 09:27] LABS: African American GFR (CKD) 15.2 (60.0-200.0); Anion Gap 17.2 mmol/L (10.00-18.00); BUN/Creat Ratio 17.52 Ratio (12.00-20.00); Blood Urea Nitrogen 87.6 mg/dL (9.0-27.0); Calcium 8.3 mg/dL (8.7-10.3); Carbon Dioxide 16.8 mmol/L (20.0-27.5); Magnesium 2.6 mg/dL (1.5-2.4); Non-African American GFR(CKD) 13.1 (60.0-200.0); Potassium 4.4 mmol/L (3.5-5.5)
[2021-10-10] MEDS ORDERED: FUROSEMIDE 40 MG TAB PO SCH (09:30)
[2021-10-10 09:34] LABS: Basophils % (A) 0 %; Eosinophils # (A) 0.2 k/uL (0-0.7); Eosinophils % (A) 1 %; HCT 31.6 % (39.0-53.0); HGB 11.1 gm/dL (13.0-17.5); Lymphocytes # (A) 1.2 k/uL (1.0-4.8); Lymphocytes % (A) 11 %; MCH 40.9 pg (25.0-35.0); MCHC 35.1 g/dL (31.0-37.0); MCV 116.4 fL (80.0-100.0); Macrocytosis Marked; Mean Platelet Volume 10.7; Monocytes % (A) 9 %; Neutrophils # (A) 8.4 k/uL (1.3-7.7); Neutrophils % (A) 76 %; Platelet Count 119 k/uL (150-450); RBC 2.72 m/uL (4.30-5.90)
[2021-10-10 10:46] LABS: Poikilocytosis (M) Present; Toxic Granulation Present
[2021-10-10 10:54] LABS: Total Bilirubin 22.8 mg/dL (0.2-1.3)
[2021-10-10 10:59] LABS: INR 2.3 (<1.2); Prothrombin Time 23.5 sec (9.0-12.0)
[2021-10-10] MEDS: FUROSEMIDE 10 MG/ML 4 ML VIAL IV SCH (11:00)
[2021-10-10] MEDS ORDERED: PHYTONADIONE 5 MG in SODIUM CHLORIDE 0.9% 50 ML IVPB STA (11:05)
[2021-10-10] MEDS ORDERED: SODIUM BICARB 8.4% 50 ML SYR (1 MEQ/ML) IV STA (12:25)
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
[2021-10-10] MEDS: HYDROCORTISONE 2.5% RECTAL CREAM 30 GM TUBE RECTAL SCH ×2 (13:05→20:33)
--- NOTE | 2021-10-10 13:40 | P.PN ---
Subjective Progress Note Date: 10/10/21 The patient is seen at bedside and per his he is about the same as yesterday. He was accepted to [facility] and pending bed. Objective - Vital Signs Vital signs: Vital Signs Temp 97.5 F L 10/10/21 08:03 Pulse 82 10/10/21 08:15 Resp 19 10/10/21 08:15 BP 97/56 10/10/21 08:03 Pulse Ox 96 10/10/21 08:22 Intake & Output 10/09/21 10/10/21 10/10/21 18:59 06:59 18:59 Intake Total 110 240 Output Total 200 Balance -90 240 Weight 81.647 kg 81.647 kg Intake: Oral 110 240 Output: Urine 200 Other: Voiding Method Indwelling Catheter # Bowel Movements 4 10 2 - Exam GENERAL: The patient is lying in bed and appears severely jaundice and fatigue throughout. . INTEGUMENTARY: Severely jaundice throughout body. NEUROLOGICAL: Higher mental function: The patient is severely drowsy but is minimaly awakeable to voice Is oriented to self. Is following few simple command (showing thumbs up and lifting arms). It was difficult to perform an exam because of cooperation. Strength: Difficult to assess but has generalized weakness and would lift bilateral upper extremities above gravity briefly. WORK-UP: CT of the head is reported as no acute intracranial abnormality. The fluid density in the right sided probable Virchow Mehdi space. I personally reviewed the CT of the head there is no acute subacute ischemia, there is no intracranial hemorrhage, there is no mass effect. I did see the hypodensity over the right side as mostly over the right basal ganglia/medial temporal region. I discussed this with Dr. Danielle (reading radiologist) today and he felt it was benign and he did not feel it was Virchow Mehdi space and he felt it was more cystic. Totoal bilirubin is 22.8 Tumor alpah fetoprotein is 2.70 AST 108, ALT 95. ammonia level 79-->22-->98. Lipase is 557. Also on phos phatase is 135. INR is 4.0-->2.74-->2.3, PTT is 50.2, PTT is 39.7. Alcohol on phosphatase is 97 Serum Folate level is 4.60 which is low normal with normal supposed to be between 4. 11/09/1932 Vitamin B12 is >2000 Ceruloplasmin is 14.6 (low) Copper is 603 (normal is 665-1480). Abdominal ultrasound is reported as large amount of abdominal ascites. There is echogenic bile in the gallbladder. There is a large portal vein consistent with some portal venous hypertension. No thrombosis seen. Bilateral kidneys as visualized appear unremarkable. Anti-myocardial antibodies 6.2 and test more with muscle antibodies 13 with are centered negative. Hepatitis A IgM antibody hepatitis B service antigen hepatitis B core IgM antibody hepatitis C IgG antibodies nonreactive on 09/04/2021. - Labs CBC & Chem 7: 10/10/21 04:14 10/10/21 04:14 Labs: Abnormal Lab Results - Last 24 Hours (Table) 10/08/21 10/09/21 10/10/21 Range/Units 04:10 03:49 04:14 WBC (3.8-10.6) k/uL RBC (4.30-5.90) m/uL Hgb (13.0-17.5) gm/dL Hct (39.0-53.0) % MCV (80.0-100.0) fL MCH (25.0-35.0) pg Plt Count (150-450) k/uL Neutrophils # (1.3-7.7) k/uL Macrocytosis PT (9.0-12.0) sec INR (<1.2) Sodium 128 L (135-145) mmol/L Chloride 94 L (96-109) mmol/L Carbon Dioxide 16.8 L (20.0-27.5) mmol/L BUN 87.6 H (9.0-27.0) mg/dL Creatinine 5.0 H (0.6-1.5) mg/dL Est GFR (CKD-EPI)AfAm 15.2 L (60.0-200.0) Est GFR (CKD-EPI)NonAf 13.1 L (60.0-200.0) Calcium 8.3 L (8.7-10.3) mg/dL Magnesium 2.6 H (1.5-2.4) mg/dL Ferritin 2549.0 H (22.0-322.0) ng/mL Total Bilirubin (0.2-1.3) mg/dL AST (17-59) U/L ALT (4-49) U/L Ammonia (<30) umol/L Copper 603 L (665-1480) ug/L 10/10/21 10/10/21 10/10/21 Range/Units 04:14 10:12 10:12 WBC 11.0 H (3.8-10.6) k/uL RBC 2.72 L (4.30-5.90) m/uL Hgb 11.1 L (13.0-17.5) gm/dL Hct 31.6 L (39.0-53.0) % MCV 116.4 H (80.0-100.0) fL MCH 40.9 H (25.0-35.0) pg Plt Count 119 L (150-450) k/uL Neutrophils # 8.4 H (1.3-7.7) k/uL Macrocytosis Marked A PT (9.0-12.0) sec INR (<1.2) Sodium (135-145) mmol/L Chloride (96-109) mmol/L Carbon Dioxide (20.0-27.5) mmol/L BUN (9.0-27.0) mg/dL Creatinine (0.6-1.5) mg/dL Est GFR (CKD-EPI)AfAm (60.0-200.0) Est GFR (CKD-EPI)NonAf (60.0-200.0) Calcium (8.7-10.3) mg/dL Magnesium (1.5-2.4) mg/dL Ferritin (22.0-322.0) ng/mL Total Bilirubin 22.8 H* (0.2-1.3) mg/dL AST 85 H (17-59) U/L ALT 83 H (4-49) U/L Ammonia 98 H (<30) umol/L Copper (665-1480) ug/L 10/10/21 Range/Units 10:13 WBC (3.8-10.6) k/uL RBC (4.30-5.90) m/uL Hgb (13.0-17.5) gm/dL Hct (39.0-53.0) % MCV (80.0-100.0) fL MCH (25.0-35.0) pg Plt Count (150-450) k/uL Neutrophils # (1.3-7.7) k/uL Macrocytosis PT 23.5 H (9.0-12.0) sec INR 2.3 H (<1.2) Sodium (135-145) mmol/L Chloride (96-109) mmol/L Carbon Dioxide (20.0-27.5) mmol/L BUN (9.0-27.0) mg/dL Creatinine (0.6-1.5) mg/dL Est GFR (CKD-EPI)AfAm (60.0-200.0) Est GFR (CKD-EPI)NonAf (60.0-200.0) Calcium (8.7-10.3) mg/dL Magnesium (1.5-2.4) mg/dL Ferritin (22.0-322.0) ng/mL Total Bilirubin (0.2-1.3) mg/dL AST (17-59) U/L ALT (4-49) U/L Ammonia (<30) umol/L Copper (665-1480) ug/L Assessment and Plan Assessment: Hepatic encephalopathy Acute liver failure unknown exact etiology. I feel other etiologies has bee r ule out. I am not sure if this is purely alcohol induced. He has been drinking about 1-3 cans of been daily since 2019 and no significant alcohol use and has been on Zoloft for past couple months. His alcohol use could have worsened his underlying condition but again I feel other etiologies need to be rule out since per he has chronic GI symptoms for years (diarrhea) Hyperammonemia due to liver failure Electrolyte abnormality due to acute liver failure Ascites due to acute liver failure Low normal folate level due to liver failure. Acute kidney injury History of alcohol use and drinks 1 to 2 cans of beer daily (12 oz) but unknown exact consumption amount. Plan: -Patient is on lactulose and we'll defer the management to the primary as well as the GI team. -CT of the head is reported as no acute intracranial abnormality. The fluid density in the right sided probable Virchow Mehdi space. I personally reviewed the CT of the head there is no acute subacute ischemia, there is no intracranial hemorrhage, there is no mass effect. I did see the hypodensity over the right side as mostly over the right basal ganglia/medial temporal region. I discussed it with Dr. Khalil (Reading radiologist) and he felt possible Virchow Mehdi space vs benign cyst and I agree with that interpretation. Therefore recommend MRI of the brain with and without can be performed when the patient is more stable and kidney normalize. GI team is on board and recommended patient to be transferred to [facility] for escalation of care. Continue thiamine 100 mg IV daily. Continue folic acid 1mg daily (since has low normal folic level). We'll defer the electrolyte imbalance management to the primary and nephrology team. He is in the process of getting dialysis since worsening of his kidney function. Ceruloplasmin is low and Copper level is low. Recommend urine copper level. denies patient family hx of Bib disease or liver disease that she is aware of. We'll defer the rest of medical management to the primary team. Condition: Is very guarded to critical The plan is discussed with the patient's who is at bedside as well as the patient's nurse. Patient is pending to be transferred to [facility] for escalation of care. Will follow-up sporadically. Sergo Phelps M.D. Neuro-hospitalist Time with Patient: Less than 30
--- NOTE | 2021-10-10 15:04 | P.GSCN ---
History of Present Illness History of present illness: 41-year-old male, I was consulted for placement of the dialysis catheter patient kidney functions are getting worse sodium is 128 patient is high consulted for placement of urgent dialysis catheter Neck examination neck is supple no bruit appreciated Chest crackles bilateral Abdomen nontender soft Femorals are 1+ bilateral Ross is placement of the dialysis catheter risk and complication discussed Past Medical History Past Medical History: Liver Disease History of Any Multi-Drug Resistant Organisms: None Reported Past Surgical History: No Surgical Hx Reported Past Psychological History: Depression Smoking Status: Never smoker Past Alcohol Use History: None Reported Past Drug Use History: None Reported - Past Family History Mother Additional Family Medical History / Comment(s): gallbladder removed, bile duct closed, jaundice Medications and Allergies Home Medications Medication Instructions Recorded Confirmed Type Lactulose 15 gm PO BID 10/06/21 10/06/21 History Multivitamins, Thera [Multivitamin 1 tab PO DAILY 10/06/21 10/06/21 History (formulary)] Potassium Chloride ER [K-Dur 20] 20 meq PO DAILY 10/06/21 10/06/21 History Sertraline [Zoloft] 50 mg PO HS 10/06/21 10/06/21 History Spironolactone 50 mg PO BID 10/06/21 10/06/21 History Allergies Allergy/AdvReac Type Severity Reaction Status Date / Time No Known Allergies Allergy Verified 10/06/21 17:25 Surgical - Exam Vital Signs Temp Pulse Resp Pulse Ox 98.2 F 79 16 98 10/06/21 16:26 10/06/21 16:26 10/06/21 16:26 10/06/21 16:26 Results - Labs 10/10/21 04:14 10/10/21 04:14 Abnormal Lab Results - Last 24 Hours (Table) 10/09/21 10/10/21 10/10/21 Range/Units 03:49 04:14 04:14 WBC 11.0 H (3.8-10.6) k/uL RBC 2.72 L (4.30-5.90) m/uL Hgb 11.1 L (13.0-17.5) gm/dL Hct 31.6 L (39.0-53.0) % MCV 116.4 H (80.0-100.0) fL MCH 40.9 H (25.0-35.0) pg Plt Count 119 L (150-450) k/uL Neutrophils # 8.4 H (1.3-7.7) k/uL Macrocytosis Marked A PT (9.0-12.0) sec INR (<1.2) Sodium 128 L (135-145) mmol/L Chloride 94 L (96-109) mmol/L Carbon Dioxide 16.8 L (20.0-27.5) mmol/L BUN 87.6 H (9.0-27.0) mg/dL Creatinine 5.0 H (0.6-1.5) mg/dL Est GFR (CKD-EPI)AfAm 15.2 L (60.0-200.0) Est GFR (CKD-EPI)NonAf 13.1 L (60.0-200.0) Calcium 8.3 L (8.7-10.3) mg/dL Magnesium 2.6 H (1.5-2.4) mg/dL Total Bilirubin (0.2-1.3) mg/dL AST (17-59) U/L ALT (4-49) U/L Ammonia (<30) umol/L Copper 603 L (665-1480) ug/L 10/10/21 10/10/21 10/10/21 Range/Units 10:12 10:12 10:13 WBC (3.8-10.6) k/uL RBC (4.30-5.90) m/uL Hgb (13.0-17.5) gm/dL Hct (39.0-53.0) % MCV (80.0-100.0) fL MCH (25.0-35.0) pg Plt Count (150-450) k/uL Neutrophils # (1.3-7.7) k/uL Macrocytosis PT 23.5 H (9.0-12.0) sec INR 2.3 H (<1.2) Sodium (135-145) mmol/L Chloride (96-109) mmol/L Carbon Dioxide (20.0-27.5) mmol/L BUN (9.0-27.0) mg/dL Creatinine (0.6-1.5) mg/dL Est GFR (CKD-EPI)AfAm (60.0-200.0) Est GFR (CKD-EPI)NonAf (60.0-200.0) Calcium (8.7-10.3) mg/dL Magnesium (1.5-2.4) mg/dL Total Bilirubin 22.8 H* (0.2-1.3) mg/dL AST 85 H (17-59) U/L ALT 83 H (4-49) U/L Ammonia 98 H (<30) umol/L Copper (665-1480) ug/L Diabetes panel 10/10/21 10/10/21 Range/Units 04:14 10:12 Sodium 128 L (135-145) mmol/L Potassium 4.4 (3.5-5.5) mmol/L Chloride 94 L (96-109) mmol/L Carbon Dioxide 16.8 L (20.0-27.5) mmol/L BUN 87.6 H (9.0-27.0) mg/dL Creatinine 5.0 H (0.6-1.5) mg/dL Glucose 100 (70-110) mg/dL Calcium 8.3 L (8.7-10.3) mg/dL AST 85 H (17-59) U/L ALT 83 H (4-49) U/L Calcium panel 10/10/21 Range/Units 04:14 Calcium 8.3 L (8.7-10.3) mg/dL Pituitary panel 10/10/21 Range/Units 04:14 Sodium 128 L (135-145) mmol/L Potassium 4.4 (3.5-5.5) mmol/L Chloride 94 L (96-109) mmol/L Carbon Dioxide 16.8 L (20.0-27.5) mmol/L BUN 87.6 H (9.0-27.0) mg/dL Creatinine 5.0 H (0.6-1.5) mg/dL Glucose 100 (70-110) mg/dL Calcium 8.3 L (8.7-10.3) mg/dL Adrenal panel 10/10/21 10/10/21 Range/Units 04:14 10:12 Sodium 128 L (135-145) mmol/L Potassium 4.4 (3.5-5.5) mmol/L Chloride 94 L (96-109) mmol/L Carbon Dioxide 16.8 L (20.0-27.5) mmol/L BUN 87.6 H (9.0-27.0) mg/dL Creatinine 5.0 H (0.6-1.5) mg/dL Glucose 100 (70-110) mg/dL Calcium 8.3 L (8.7-10.3) mg/dL Total Bilirubin 22.8 H* (0.2-1.3) mg/dL AST 85 H (17-59) U/L ALT 83 H (4-49) U/L
[2021-10-10] MEDS ORDERED: LIDOCAINE 1% INJ 10MG/ML (20 ML MDV) SQ ONE (15:15)
[2021-10-10] MEDS ORDERED: IV FLUID CONTINUATION 250 ML IV ONE (15:15)
[2021-10-10] MEDS ORDERED: MIDAZOLAM 2 MG/2 ML VIAL IV ONE (15:15)
[2021-10-10] MEDS ORDERED: fentaNYL (PF) 50 MCG/ML 2 ML AMP IV ONE (15:19)
--- NOTE | 2021-10-10 15:29 | P.PCN ---
Description of Procedure: Preoperative diagnoses is acute chronic renal failure Postoperative same Procedure ultrasound-guided 20 same dialysis catheter exit site femoral approach about the Regrinder Operator right groin was prepped and draped applied usual standard manner. 1% lidocaine was given with IV sedation ultrasound guided micropuncture introduced right femoral vein micropuncture guidewire was passed and sheath was across on top the guidewire through the sheath we passed a regular guidewire under fluoroscopy control dilator was advanced on the top of guidewire then we placed 30 same dialysis catheter flushed with heparin saline and secured with 3- 0 nylon flushed with heparin saline and Hep-Lock patient tolerated the procedure well thank you
[2021-10-10] MEDS: ALBUMIN HUMAN 25% 50 ML in EMPTY BAG 1 BAG IVPB SCH ×2 (20:31→20:33)
[2021-10-10] MEDS ORDERED: RIFAXIMIN 550 MG TABLET PO SCH (21:00)
[2021-10-11 01:24] LABS: Hepatitis B Surface Antigen Nonreactive (Nonreactive)
[2021-10-11] MEDS: ALBUMIN HUMAN 25% 50 ML in EMPTY BAG 2 BAG IVPB SCH ×2 (03:17→03:18)
[2021-10-11 03:27] VITALS: BP 91/49
[2021-10-11] MEDS ORDERED: MIDODRINE 5 MG TAB PO STA (03:27)
[2021-10-11 03:56] VITALS: PULSE 81; RESP 18; TEMP 97.5
[2021-10-11 09:26] LABS: Hepatitis B Surface AB- Quant 3.5 mIU/mL; Hepatitis B Surface Antibody Nonreactive (Nonreactive)
--- NOTE | 2021-10-11 13:34 | IR ---
EXAMINATION TYPE: IR cvc insert central tunneled DATE OF EXAM: 10/10/2021 COMPARISON: NONE HISTORY: Central venous catheter placement Fluoroscopy support supplied to the referring clinician. See dictated report from vascular surgery, 0.1 minutes fluoroscopy time, no images obtained
== END 2021-10-11 05:14 | DRG 432 ==
LOC: EC 16:24 → 4SSUR 18:23
PROVIDERS: ADMIT Family Medicine; ATTEND Family Medicine
PROC: 06HM33Z Insertion of Infusion Device into Right Femoral Vein, Percutaneous Approach (ICD-10-PCS; principal; 2021-10-10 20:55)
DX: K70.40 Alcoholic hepatic failure without coma (principal); N17.0 Acute kidney failure with tubular necrosis; E87.1 Hypo-osmolality and hyponatremia; E87.2 Acidosis; J98.11 Atelectasis; K76.6 Portal hypertension; E72.20 Disorder of urea cycle metabolism, unspecified; E11.9 Type 2 diabetes mellitus without complications; E86.1 Hypovolemia; E87.5 Hyperkalemia; Z20.822 Contact with and (suspected) exposure to COVID-19; E87.70 Fluid overload, unspecified; F32.A Depression, unspecified; K70.31 Alcoholic cirrhosis of liver with ascites; Z79.899 Other long term (current) drug therapy; K21.9 Gastro-esophageal reflux disease without esophagitis; R68.0 Hypothermia, not associated with low environmental temperature
CPT/HCPCS: 36415; 36556; 70450; 71046; 76705; 76770; 76937; 77001; 80048; 80053; 81001; 82103; 82105; 82140; 82150; 82247; 82390; 82525; 82607; 82728; 82746; 83516; 83540; 83550; 83605; 83690; 83735; 84100; 84165; 84450; 84460; 84484; 85025; 85027; 85610; 85730; 86704; 86706; 87340; 87635; 93005; 94760; 96361; 96374; 99285